=== PATIENT | female | born 1925 | race Caucasian/White ===

== ENCOUNTER 2016-10-25 12:33 | Inpatient (IN) | payer MEDICARE ==
[~2016-10-25] VITALS: Ht 167.6 cm; Wt 45.0 kg
[~2016-10-25 12:33] MED LIST: ALEN70 PO; ALLE24TA PO; CLIN1CAP6 PO; FLON0.053; IBUP800T23 PO; LEVO.075 PO; LEXA20TA PO; METHO500 PO; PRAV40TA PO; PRED20 PO; PROT40TA PO; STOO100C PO
[2016-10-25 12:58] VITALS: BP 120/58; PULSE 99; RESP 22; TEMP 97.5; O2SAT 96
--- NOTE | 2016-10-25 13:12 | PD ---
HPI Chief Complaint: Fall Time Seen by Provider: 13:08 Travel History International Travel<30 days: No Contact w/Intl Traveler<30days: No Traveled to known affect area: No History of Present Illness HPI 89 YO F with PMH of COPD, GERD presents to the ED from her RETIREMENT via EMS for evaluation of right arm and right hip pain following mechanical fall this morning. The patient states that she was attempting to transfer from her bed to ther wheelchair and "slipped." She endorses hitting her head but denies loss of consciousness. On presentation she denies headache, vision changes, nausea, vomiting, limitations to range of motion of the extremities. She endorses a history of chronic dizziness, no worse today. Her daughters are at bedside and state that the patient transfers like this every morning, sometimes uses a walker. They endorse a history of falls. They state that the patient is in her normal state of health and behaving normally. She has a history of right hip fracture with intertrochanteric nailing by Dr. Marie. [facility] Past Medical History Anemia: Yes Arthritis: Yes Blood Disorders: No Anxiety: Yes Depression: No Heart Rhythm Problems: No Cancer: No Cardiovascular Problems: Yes High Cholesterol: Yes Chest Pain: No Congestive Heart Failure: No COPD: Yes Cerebrovascular Accident: No Diabetes: No Diminished Hearing: No Endocrine: No Gastrointestinal Disorders: Yes GERD: Yes Genitourinary: Yes (HYPERACTIVE BLADDER) Headaches: No Hepatitis: No Hiatal Hernia: No Hypertension: No Immune Disorder: No Implanted Vascular Access Dvce: Yes (HX OF PICC LINE) Kidney Stones: No Medical other: Yes (pt has a fractured right foot which she is wearing a boot) Musculoskeletal: Yes (DJD; LUMBAR RADICULOPATHY; SPINAL STENOSIS) Neurologic: No Psychiatric: Yes Reproductive: No Respiratory: Yes (SINUS PROBLEMS) Migraines: No Myocardial Infarction: No Renal Failure: No Seizures: No Sleep Apnea: No Thyroid Disease: Yes Ulcer: No Menopausal: Yes : 3 Para: 2 Miscarriage: 1 Past Surgical History Abdominal Surgery: Yes (HYSTERECTOMY) Appendectomy: Yes Body Medical Devices: ORIF RIGHT RADIUS Section: Yes Cholecystectomy: No Ear Surgery: No Endocrine Surgery: No Eye Surgery: Yes (CATARACT REMOVED BOTH EYES) Genitourinary Surgery: No Hysterectomy: Yes Oral Surgery: No Pacemaker: No Tonsillectomy: Yes Other Surgery: Yes (NASAL FX/ORBITAL FX) Social History Alcohol Use: No Tobacco Use: No Substance Use: No Allergies-Medications (Allergen,Severity, Reaction): Coded Allergies: latex (Unverified Allergy, Severe, Rash, 09/24/16) phenazopyridine (Unverified Allergy, Severe, Nausea/Vomiting, 09/24/16) povidone-iodine (Unverified Allergy, Severe, 09/24/16) *MDRO Multi-Drug Resistant Organism (Unverified Adverse Reaction, Unknown , 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 Uncoded Allergies: VAGICIL (Allergy, Unknown, 12/13/02) Reported Meds & Prescriptions Reported Meds & Active Scripts Active Reported Claritin (Loratadine) 10 Mg Cap 10 Mg PO DAILY Levothyroxine (Levothyroxine Sodium) 75 Mcg Tab 75 Mcg PO DAILY Fluticasone Nasal [place] 50 Mcg/Act Naspr 50 Mcg EACH NARE DAILY 50 mcg/spray Atorvastatin (Atorvastatin Calcium) 20 Mg Tab 20 Mg PO HS Escitalopram (Escitalopram Oxalate) 20 Mg Tab 20 Mg PO DAILY Pantoprazole (Pantoprazole Sodium) 40 Mg Tab 40 Mg PO DAILY Meclizine (Meclizine HCl) 12.5 Mg Tab 12.5 Mg PO TID PRN Duoneb (Ipratropium-Albuterol Neb) 0.5-2.5 Mg/3 Ml Neb 1 Nebule INH Q6HR NEB Ibuprofen 800 Mg Tab 800 Mg PO Q8H PRN Review of Systems Except as stated in HPI: all other systems reviewed are Neg Physical Exam Narrative GENERAL: Frail, elderly white female in no acute distress. SKIN: Focused skin assessment warm/dry. Bruising along the base of the right thumb. HEAD: Normocephalic. Right periorbital contusion. No tenderness to palpation of the skull or facial bones. EYES: No scleral icterus. No injection or drainage. PERRLA. EOMI. NECK: Supple, trachea midline. No JVD or lymphadenopathy. No midline tenderness to palpation. No limitations to ROM of the neck. CARDIOVASCULAR: Regular rate and rhythm without murmurs, gallops, or rubs. 2+ DP and radial pulses bilaterally. RESPIRATORY: Breath sounds equal bilaterally. No accessory muscle use. GASTROINTESTINAL: Abdomen scaphoid, soft, non-tender, nondistended. Active bowel sounds. MUSCULOSKELETAL: No cyanosis, or edema. No internal rotation or foreshortening of the lower extremities. No TTP of the hip joints bilaterally. FOCUSED RIGHT UPPER EXTREMITY EXAM: TTP of the elbow joint. Pain elicited with attempted ROM. No TTP of the shoulder or wrist. No TTP of the joints of the wrist or hand. Neurovascularly intact. BACK: Nontender without obvious deformity. No CVA tenderness. Data Data Last Documented VS Vital Signs Date Time Temp Pulse Resp B/P (MAP) Pulse Ox O2 Delivery O2 Flow Rate FiO2 10/25/16 13:01 99 22 96 Nasal Cannula 6.00 10/25/16 12:58 97.5 120/58 (78) Orders Orders Hip, Uni(Ap&Lat) W Ap Pelvis (10/25/16 12:57) Humerus (Min 2vws) (10/25/16 12:57) Ct Brain W/O Iv Contrast(Rout) (10/25/16 12:57) Ct Cerv Spine W/O Contrast (10/25/16 12:57) Ct Facial Bones W/O Iv Cont (10/25/16 12:57) Acetaminophen (Tylenol) (10/25/16 13:15) Consult Orthopedic (10/25/16 ) Place In Observation (10/25/16 ) Code Status (10/25/16 15:12) Vital Signs (Adult) Q4H (10/25/16 15:12) Activity Oob With Assistance (10/25/16 15:12) Diet Heart Healthy (10/25/16 Dinner) Sodium Chloride 0.9% Flush (Ns Flush) (10/25/16 15:15) Sodium Chloride 0.9% Flush (Ns Flush) (10/25/16 21:00) Acetaminophen (Tylenol) (10/25/16 15:15) Ondansetron Inj (Zofran Inj) (10/25/16 15:15) Basic Metabolic Panel (Bmp) (10/26/16 06:00) Complete Blood Count With Diff (10/26/16 06:00) Chest, Single Ap (10/25/16 15:12) Electrocardiogram (10/25/16 15:12) Pt Request For Service (10/25/16 15:12) Enoxaparin Inj (Lovenox Inj) (10/25/16 15:15) Naloxone Inj (Narcan Inj) (10/25/16 15:15) Magnesium Hydroxide Liq (Milk Of Magnesi (10/25/16 15:15) Admit Order (Ed Use Only) (10/25/16 15:13) Splinting (10/25/16 ) Albuterol-Ipratropium Neb (Duoneb Neb) (10/25/16 15:15) Atorvastatin (Lipitor) (10/25/16 21:00) Escitalopram (Lexapro) (10/26/16 09:00) Levothyroxine (Synthroid) (10/26/16 09:00) Loratadine (Claritin) (10/26/16 09:00) Meclizine (Antivert) (10/25/16 15:15) Pantoprazole (Protonix) (10/26/16 09:00) [facility] Medical Decision Making Medical Screen Exam Complete: Yes Emergency Medical Condition: Yes Interpretation(s) EKG rate 102, sinus tachycardia. LAD. Nonspecific T wave abnormality. Reviewed by Dr. Bower Differential Diagnosis contusion versus facial fracture versus humeral fracture versus hip fracture versus pelvic fracture versus other Narrative Course 89 YO F with PMH of COPD, GERD presents to the ED from her RETIREMENT via EMS for evaluation of right arm and right hip pain following mechanical fall this morning. The patient states that she was attempting to transfer from her bed to ther wheelchair and "slipped." She denies loss of consciousness. On presentation she denies headache, vision changes, nausea, vomiting, limitations to range of motion of the extremities. She endorses a history of chronic dizziness, no worse today. Per daughters at bedside the patient is minimally ambulatory, behaving normally. She has a history of right hip fracture with intertrochanteric nailing by Dr. Marie. Vitals reviewed. Physical exam reveals a pleasant, frail white female in no acute distress. She has ecchymosis around the right eye, tenderness of the right elbow, exam otherwise unremarkable. X-ray hip and pelvis: fractures of the superior and inferior right pubic rami. X-ray right humerus: Nondisplaced supracondylar fracture. CTs of brain, cervical spine and facial bones all without acute findings. I spoke with Dr. Valadez who requests that the patient be admitted for observation. Dr. Marie will see the patient tomorrow. The family is agreeable to this plan. Dr. Jernigan agrees to accept the patient to the medical service. Please see medicine and ortho notes for disposition. Milena Chapa Oct 25, 2016 13:12
[2016-10-25] MEDS ORDERED: ACETAMINOPHEN 500 MG CPLT PO ONE (13:15)
[2016-10-25] MEDS ORDERED: IPRASOL INH (14:13)
[2016-10-25] MEDS ORDERED: PANT40TA3 PO (14:13)
[2016-10-25] MEDS ORDERED: MECL12.574 PO (14:13)
[2016-10-25] MEDS ORDERED: ESCI20TA PO (14:13)
[2016-10-25] MEDS ORDERED: LEVO75TA3 PO (14:13)
[2016-10-25] MEDS ORDERED: ATOR20TA15 PO (14:13)
[2016-10-25] MEDS ORDERED: CLAR10CA3 PO (14:13)
[2016-10-25] MEDS ORDERED: IBUP800T23 PO (14:13)
[2016-10-25] MEDS ORDERED: FLUT50SP EACH NARE (14:13)
--- NOTE | 2016-10-25 14:17 | RADRPT ---
EXAM DATE/TIME: 10/25/2016 13:25 [facility] COMPARISON: No previous studies available for comparison. INDICATIONS : Right hip pain post fall. MEDICAL HISTORY : None. SURGICAL HISTORY : None. ENCOUNTER: Initial ACUITY: 1 day PAIN SCORE: 10/10 LOCATION: Bilateral Pelvis FINDINGS: Previous Troch nail is evident. Urine does not appear solid. Acute Fracture of the superior and inferior pubic rami are present that appears acute. The left hemipelvis is intact. CONCLUSION: Acute fracture inferior and superior pubic ramus on the right Previous hip nailing. Arik Narayan MD FACR on October 25, 2016 at 14:14 Board Certified Radiologist. This report was verified electronically.
--- NOTE | 2016-10-25 14:25 | RADRPT ---
EXAM DATE/TIME: 10/25/2016 13:25 [facility] COMPARISON: No previous studies available for comparison. INDICATIONS : Right arm pain post fall. Patient has bruising near elbow. MEDICAL HISTORY : None. SURGICAL HISTORY : None. ENCOUNTER: Initial ACUITY: 1 day PAIN SCORE: 10/10 LOCATION: Right Humerus FINDINGS: Supracondylar fracture of the humerus in anatomic alignment with moderate joint effusion. Olecranon and radial head are intact. CONCLUSION: Supracondylar humeral fracture in reasonable alignment. Arik Narayan MD FACR on October 25, 2016 at 14:22 Board Certified Radiologist. This report was verified electronically.
--- NOTE | 2016-10-25 14:28 | RADRPT ---
EXAM DATE/TIME: 10/25/2016 14:08 [facility] COMPARISON: CT BRAIN W/O CONTRAST, May 10, 2013, 19:48. INDICATIONS : Head pain due to fall. RADIATION DOSE: 31.84 CTDIvol (mGy) MEDICAL HISTORY : Cardiovascular disease. Spinal stenosis. SURGICAL HISTORY : Appendectomy. Hysterectomy. ENCOUNTER: Initial ACUITY: 1 day PAIN SCALE: 8/10 LOCATION: Right cranial frontal region. TECHNIQUE: Multiple contiguous axial images were obtained of the head. Using automated exposure control and adj ustment of the mA and/or kV according to patient size, radiation dose was kept as low as reasonably a chievable to obtain optimal diagnostic quality images. DICOM format image data is available [facility] for review and comparison. FINDINGS: CEREBRUM: Mild cerebral atrophy. Moderate periventricular white matter small vessel ischemic changes are noted bilaterally. No evidence of midline shift, mass lesion, hemorrhage or acute infarction. No extra-axi al fluid collections are seen. POSTERIOR FOSSA: The cerebellum and brainstem are intact. The 4th ventricle is midline. The cerebellopontine angle i s unremarkable. EXTRACRANIAL: The visualized portion of the orbits is intact. Mucosal thickening is noted involving the bilateral m axillary and sphenoid sinuses as well as the left ethmoid air cells. SKULL: The calvaria is intact. No evidence of skull fracture. CONCLUSION: 1. Mild cerebral atrophy and moderate periventricular white matter small vessel ischemic changes bila terally. 2. No acute infarct, acute hemorrhage, mass effect or extra-axial fluid collections. 3. Mucosal thickening involving the bilateral maxillary and sphenoid sinuses and left ethmoid air ajit ls. Ed Maria MD on October 25, 2016 at 14:23 Board Certified Radiologist. This report was verified electronically.
--- NOTE | 2016-10-25 14:45 | RADRPT ---
EXAM DATE/TIME: 10/25/2016 14:08 [facility] COMPARISON: CT CERVICAL SPINE W/O CONTRAST, May 10, 2013, 19:48. INDICATIONS : Neck pain due to fall. RADIATION DOSE: 7.24 CTDIvol (mGy) MEDICAL HISTORY : Cardiovascular disease. Spinal stenosis. SURGICAL HISTORY : Appendectomy. Hysterectomy. ENCOUNTER: Initial ACUITY: 1 day PAIN SCALE: 7/10 LOCATION: Right side of neck. TECHNIQUE: Volumetric scanning of the cervical spine was performed. Multiplanar reconstructions in the sagittal, coronal and oblique axial planes were performed. Using automated exposure control and adjustment o f the mA and/or kV according to patient size, radiation dose was kept as low as reasonably achievable to obtain optimal diagnostic quality images. DICOM format image data is available electronically f or review and comparison. FINDINGS: There is no acute fracture or prevertebral soft tissue swelling. Severe disc space narrowing and sub chondral sclerosis is noted at C5-6 and C6-7 and is stable compared to the previous examination in [facility] of 2013. There is severe disc space narrowing at C4-5 and moderate disc space narrowing at C3-4 and C7-T1 also. Moderate bilateral foraminal narrowing is noted at C5-6 and C6-7 and moderate left n eural foraminal narrowing is noted at C3-4 and C4-5. Scoliosis of the cervical spine is noted. Biap ical scarring and pleural thickening is again noted. Spinal stenosis is again noted at C5-6 and C6-7 . CONCLUSION: 1. No acute fracture or prevertebral soft tissue swelling. 2. Stable chronic spinal stenosis at C5-6 and C6-7 with moderate bilateral foraminal narrowing at the se levels. 3. Moderate left neural foraminal narrowing at C3-4 and C4-5. 4. Diffuse cervical spondylosis which is most severe at C5-6 and C6-7. 5. Straightening of the normal cervical lordosis. 6. Biapical scarring and pleural thickening which is unchanged compared to the previous examination. Ed Maria MD on October 25, 2016 at 14:27 Board Certified Radiologist. This report was verified electronically.
--- NOTE | 2016-10-25 14:47 | RADRPT ---
EXAM DATE/TIME: 10/25/2016 14:08 [facility] COMPARISON: No previous studies available for comparison. INDICATIONS : Right side orbit pain due to fall. RADIATION DOSE: 46.29 CTDIvol (mGy) MEDICAL HISTORY : Cardiovascular disease. Spinal stenosis. SURGICAL HISTORY : Appendectomy. Hysterectomy. ENCOUNTER: Initial ACUITY: 1 day PAIN SCORE: 6/10 LOCATION: facial TECHNIQUE: Volumetric scanning of the facial bones was performed. Using automated exposure control and adjustme nt of the mA and/or kV according to patient size, radiation dose was kept as low as reasonably achiev able to obtain optimal diagnostic quality images. DICOM format image data is available electronicall y for review and comparison. FINDINGS: There is soft tissue swelling about the right orbit without fracture. The superior and inferior nasa l spines are intact. The orbit is intact. There is low sinus disease mostly mucoperiosteal thickening including the sphenoid and left scrotal a nd ethmoids.. There are extensive degenerative changes both the right and left TMJ. CONCLUSION: Negative for fracture. Low chronic sinus disease. Arik Narayan MD FACR on October 25, 2016 at 14:43 Board Certified Radiologist. This report was verified electronically.
[2016-10-25] MEDS ORDERED: NALOXONE HCL 0.4 MG/ML AMP IV PUSH PRN (15:15)
[2016-10-25] MEDS ORDERED: SODIUM CHLORIDE 0.9% FLUSH 10 ML FLUSH IV FLUSH PRN (15:15)
[2016-10-25] MEDS ORDERED: MAGNESIUM HYDROXIDE SUSP 30 ML CUP PO PRN (15:15)
[2016-10-25] MEDS ORDERED: MECLIZINE HCL 25 MG TAB PO PRN (15:15)
[2016-10-25] MEDS ORDERED: ONDANSETRON HCL 4 MG/2 ML VIAL IVP PRN (15:15)
[2016-10-25] MEDS ORDERED: HYDROmorphone HCL PF 1 MG/ML VIAL IV PUSH PRN (15:15)
[2016-10-25 15:59] VITALS: O2SAT 94
[2016-10-25] MEDS: RESP: ALBUTEROL 2.5 MG/IPRATROPIUM 0.5 MG NEB (PRN) NEB (16:02)
--- NOTE | 2016-10-25 16:15 | RADRPT ---
EXAM DATE/TIME: 10/25/2016 15:48 [facility] COMPARISON: HIP RIGHT (AP&LAT 2/3VWS) W AP PELVIS, October 25, 2016, 13:25. INDICATIONS : Shortness of breath, chest pain. MEDICAL HISTORY : Chronic obstructive pulmonary disease. SURGICAL HISTORY : Hysterectomy. ENCOUNTER: Initial ACUITY: 1 day PAIN SCORE: 5/10 LOCATION: Bilateral chest FINDINGS: The examination demonstrates moderate COPD changes. The heart is normal in size. The visualized bony structures are grossly intact. CONCLUSION: 1. COPD changes. Negative for acute abnormality. Lucien Narayan MD on October 25, 2016 at 16:12 Board Certified Radiologist. This report was verified electronically.
[2016-10-25 17:00] VITALS: BP 76/40; PULSE 108; RESP 18; TEMP 96.3; O2SAT 95
[2016-10-25] MEDS ORDERED: SODIUM CHLOR 0.9% 1000 ML INJ 1,000 ML IV SCH (17:00)
[2016-10-25] MEDS ORDERED: SODIUM CHLORID 0.9% 500 ML INJ 500 ML IV ONE (17:00)
--- NOTE | 2016-10-25 17:13 | HHI.HP ---
HPI Service [facility] Hospitalists Primary Care Physician Carl Cota M.D. Admission Diagnosis right inf and sup pubic rami fx. Right supraconylar humeral fx. 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 Patient currently living in an [facility] and has been independent with ADLs. Patient was transferring from her bed to her wheelchair reports that she slipped and fell. Patient endorses that she hit her head but denies loss of consciousness. Patient endorses a history of chronic dizziness, no worse today. Her daughters are at bedside and state that the patient transfers like this every morning, sometimes uses a walker. They endorse a history of falls. They state that the patient is in her normal state of health and behaving normally. Patient denies headache, vision changes, nausea, vomiting, limitations to range of motion of the extremities. She has a history of right hip fracture with intertrochanteric nailing by Dr. Marie. Patient sustained a fracture of the inferior and superior pubic ramus on right and a supra condylar humeral fracture in reasonable alignment Review of Systems Constitutional: DENIES: Fatigue, Fever, Chills Eyes: DENIES: Blurred vision, Eye pain, Double Vision Respiratory: DENIES: Cough, Sputum production, Shortness of breath Cardiovascular: DENIES: Chest pain, Palpitations, Dyspnea on Exertion Musculoskeletal: COMPLAINS OF: Joint pain Neurologic: DENIES: Localized weakness, Paresthesias, Speech Problems Psychiatric: DENIES: Anxiety, Confusion, Depression Past Family Social History Past Medical History 1. Spinal stenosis involving her lumbar spine. 2. Degenerative joint disease. 3. Over active bladder. 4. History of recurrent urinary tract infection. 5. Hyperlipidemia. 6. Anxiety. 7. Osteoporosis. 8. Chronic anemia. 9. Gastroesophageal reflux disease. 10. Allergic rhinitis. 11. Hypothyroidism. 12. Depression. Past Surgical History 1. Total hysterectomy. 2. Tonsillectomy. 3. Right hip fracture requiring surgery. 4. Fracture of the right radius and open reduction, internal fixation. 5. Lumbar surgery by Dr. Damian, details are not known to the patient. Reported Medications Claritin (Loratadine) 10 Mg Cap 10 Mg PO DAILY Levothyroxine (Levothyroxine Sodium) 75 Mcg Tab 75 Mcg PO DAILY Fluticasone Nasal [place] 50 Mcg/Act Naspr 50 Mcg EACH NARE DAILY 50 mcg/spray Atorvastatin (Atorvastatin Calcium) 20 Mg Tab 20 Mg PO HS Escitalopram (Escitalopram Oxalate) 20 Mg Tab 20 Mg PO DAILY Pantoprazole (Pantoprazole Sodium) 40 Mg Tab 40 Mg PO DAILY Meclizine (Meclizine HCl) 12.5 Mg Tab 12.5 Mg PO TID PRN Duoneb (Ipratropium-Albuterol Neb) 0.5-2.5 Mg/3 Ml Neb 1 Nebule INH Q6HR NEB Ibuprofen 800 Mg Tab 800 Mg PO Q8H PRN Allergies: Coded Allergies: latex (Unverified Allergy, Severe, Rash, 09/24/16) phenazopyridine (Unverified Allergy, Severe, Nausea/Vomiting, 09/24/16) povidone-iodine (Unverified Allergy, Severe, 09/24/16) *MDRO Multi-Drug Resistant Organism (Unverified Adverse Reaction, Unknown , 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 Uncoded Allergies: VAGICIL (Allergy, Unknown, 12/13/02) Active Ordered Medications Current Medications Medications (Trade) Dose Ordered Sig/Evelia Route Start Time Stop Time Status Last Admin (NS Flush) 2 ml UNSCH PRN IV FLUSH 10/25/16 15:15 (NS Flush) 2 ml BID IV FLUSH 10/25/16 21:00 (Tylenol) 650 mg Q4H PRN PO 10/25/16 15:15 (Zofran Inj) 4 mg Q6H PRN IVP 10/25/16 15:15 (Lovenox Inj) 30 mg Q24H SQ 10/25/16 16:00 (Narcan Inj) 0.4 mg UNSCH PRN IV PUSH 10/25/16 15:15 (Milk Of Magnesia Liq) 30 ml Q12H PRN PO 10/25/16 15:15 (Duoneb Neb) 1 ampule Q6HR NEB PRN NEB 10/25/16 15:15 10/25/16 16:02 (Lipitor) 20 mg HS PO 10/25/16 21:00 (Lexapro) 20 mg DAILY PO 10/26/16 09:00 (Synthroid) 75 mcg DAILY PO 10/26/16 09:00 (Claritin) 10 mg DAILY PO 10/26/16 09:00 (Antivert) 12.5 mg TID PRN PO 10/25/16 15:15 (Protonix) 40 mg DAILY PO 10/26/16 09:00 ([place] 5-325 Mg) 1 tab Q6H PRN PO 10/25/16 15:15 (Dilaudid Pf Inj) 0.5 mg Q6H PRN IV PUSH 10/25/16 15:15 Sodium Chloride 500 ml @ 250 mls/hr BOLUS ONCE IV 10/25/16 17:00 10/25/16 18:59 UNV Sodium Chloride 1,000 ml @ 75 mls/hr [id number] IV 10/25/16 17:00 10/26/16 06:19 UNV Family History noncontributory Social History The patient has a history of smoking probably 14 years less than a pack a day. The patient quit when she was 37. Drinks alcohol socially. Physical Exam Vital Signs Vital Signs Date Time Temp Pulse Resp B/P (MAP) Pulse Ox O2 Delivery O2 Flow Rate FiO2 10/25/16 16:30 10/25/16 15:59 94 Nasal Cannula 2.00 10/25/16 13:01 99 22 96 Nasal Cannula 6.00 10/25/16 12:58 97.5 99 22 120/58 (78) 96 Nasal Cannula 6.00 Physical Exam GENERAL: This is a frail cachetic 89 year old elderly female SKIN:ecchymoses left side of face HEAD: ecchymosis left side of face NECK: Trachea midline. No JVD or lymphadenopathy. Supple, nontender, no meningeal signs. CARDIOVASCULAR: Regular rate and rhythm RESPIRATORY: Clear to auscultation. Breath sounds equal bilaterally. No wheezes , rales, or rhonchi. GASTROINTESTINAL: Abdomen soft, non-tender, nondistended. No guarding. MUSCULOSKELETAL: generalized muscular atrophy NEUROLOGICAL: Awake and alert. Motor and sensory grossly within normal limits. 3-4 out of 5 muscle strength in all muscle groups. Imaging Last Impressions Maxillofacial CT 10/25/16 1257 Signed Impressions: Service Date/Time: Tuesday, October 25, 2016 14:08 - CONCLUSION: Negative for fracture. Tubbs chronic sinus disease. Arik Narayan MD FACR Humerus X-Ray 10/25/16 1257 Signed Impressions: Service Date/Time: Tuesday, October 25, 2016 13:25 - CONCLUSION: Supracondylar humeral fracture in reasonable alignment. Arik Narayan MD FACR Hip and Pelvis X-Ray 10/25/16 1257 Signed Impressions: Service Date/Time: Tuesday, October 25, 2016 13:25 - CONCLUSION: Acute fracture inferior and superior pubic ramus on the right Previous hip nailing. Arik Narayan MD FACR Head CT 10/25/16 1257 Signed Impressions: Service Date/Time: Tuesday, October 25, 2016 14:08 - CONCLUSION: 1. Mild cerebral atrophy and moderate periventricular white matter small vessel ischemic changes bilaterally. 2. No acute infarct, acute hemorrhage, mass effect or extra-axial fluid collections. 3. Mucosal thickening involving the bilateral maxillary and sphenoid sinuses and left ethmoid air cells. Ed Maria MD Caprini VTE Risk Assessment Caprini VTE Risk Assessment: Mod/High Risk (score >= 2) Caprini Risk Assessment Model Point Value = 1 Point Value = 2 Point Value = 3 Point Value = 5 Age 41-60 Minor surgery BMI > 25 kg/m2 Swollen legs Varicose veins or History of unexplained or recurrent spontaneous Oral contraceptives or hormone replacement Sepsis (< 1 month) Serious lung disease, including pneumonia (< 1 month) Abnormal pulmonary function Acute myocardial infarction Congestive heart failure (< 1 month) History of inflammatory bowel disease Medical patient at bed rest Age 61-74 Arthroscopic surgery Major open surgery (> 45 min) Laparoscopic surgery (> 45 min) Malignancy Confined to bed (> 72 hours) Immobilizing plaster cast Central venous access Age >= 75 History of VTE Family history of VTE Factor V Leiden Prothrombin [id number] Lupus anticoagulant Anticardiolipin antibodies Elevated serum homocysteine Heparin-induced thrombocytopenia Other congenital or acquired thrombophilia Stroke (< 1 month) Elective arthroplasty Hip, pelvis, or leg fracture Acute spinal cord injury (< 1 month) Prophylaxis Regimen Total Risk Factor Score Risk Level Prophylaxis Regimen 0-1 Low Early ambulation 2 Moderate Order ONE of the following: *Sequential Compression Device (SCD) *Heparin 5000 units SQ BID 3-4 Higher Order ONE of the following medications: *Heparin 5000 units SQ TID *Enoxaparin/Lovenox 40 mg SQ daily (WT < 150 kg, CrCl > 30 mL/min) *Enoxaparin/Lovenox 30 mg SQ daily (WT < 150 kg, CrCl > 10-29 mL/min) *Enoxaparin/Lovenox 30 mg SQ BID (WT < 150 kg, CrCl > 30 mL/min) AND/OR *Sequential Compression Device (SCD) 5 or more Highest Order ONE of the following medications: *Heparin 5000 units SQ TID (Preferred with Epidurals) *Enoxaparin/Lovenox 40 mg SQ daily (WT < 150 kg, CrCl > 30 mL/min) *Enoxaparin/Lovenox 30 mg SQ daily (WT < 150 kg, CrCl > 10-29 mL/min) *Enoxaparin/Lovenox 30 mg SQ BID (WT < 150 kg, CrCl > 30 mL/min) AND *Sequential Compression Device (SCD) Assessment and Plan Problem List: (1) Fall ICD Codes: W19.XXXA - Unspecified fall, initial encounter Plan: mechanical fall imaging reviewed Hip/Pelvis X-ray revealed fracture of the inferior and superior pubic ramus on right Humerus X ray right supra condylar humeral fracture in reasonable alignment Head CT reviewed and revealed no acute infarct, acute hemorrhage, mass effect or extra-axial fluid collection Consult to Orthopedic surgery Patient also reports back pain- Lumbar spine x ray pending PT eval and treat DVT prophylaxis Lovenox (2) Hypotension ICD Codes: I95.9 - Hypotension, unspecified Plan: upon arrival to her room patient BP 66/41 start fluid challenge 500 ml bolus followed by NS at 75 ml/hour discussed with daughters at bedside they agree with vasopressor if needed (3) Hypothyroid ICD Codes: E03.9 - Hypothyroid Status: Acute Plan: continue home levothyroxine (4) Hyperlipemia ICD Codes: E78.5 - Hyperlipemia Status: Acute Plan: continue Atorvastatin (5) GERD (gastroesophageal reflux disease) ICD Codes: K21.9 - GERD (gastroesophageal reflux disease) Status: Acute Plan: continue pantoprazole Assessment and Plan Patient examined. Assessment and plan formulated with Becky MACK I agree with the above. Code Status DNR Becky Serrano Oct 25, 2016 17:13 Segun Jernigan DO Oct 28, 2016 15:32
[2016-10-25] MEDS ORDERED: TERBUTALINE INJ 1 MG/ML AMP SQ PRN (17:45)
[2016-10-25] MEDS ORDERED: DOPamine INJ PREMIX 500 ML IV PRN (17:45)
[2016-10-25] MEDS: ENOXAPARIN SODIUM 30 MG/0.3 ML SYRINGE SQ SCH (17:58)
--- NOTE | 2016-10-25 18:46 | MH ---
cc: ZEE MAIN EDWARD B. DO DATE OF ADMISSION: 10/25/2016 REASON FOR CONSULTATION: 1. Fracture, right superior and inferior pubic rami. 2. Nondisplaced supracondylar fracture right humerus. HISTORY OF PRESENT ILLNESS: History consists of a fall in the assisted living facility this morning at 10:30 when the patient was trying to transfer from bed to a wheelchair to go to the bathroom. She states she does not know what happened but she lost her balance and fell resulting in this injury for which was brought to the [facility] Emergency Room where she was evaluated, x-rayed and now admitted to the hospital for definitive care. PAST MEDICAL HISTORY: 1. She suffers from chronic pain because of back problems in spite of spinal fusion done several years ago. She is limited in her activities, especially ambulation because of that. 2. Fracture of the intertrochanteric region of the right femur sustained several years ago and treated by Dr. Marie. 3. Fracture of the right wrist. 4. Fracture of the right foot. 5. Recurrent urinary tract infection. 6. Hyperlipidemia. 7. Anxiety. 8. Chronic anemia. 9. Gastroesophageal reflux disease (GERD). 10. Hypothyroidism. 11. Depression. PAST SURGICAL HISTORY: 1. Total hysterectomy. 2. Tonsillectomy. 3. Open reduction internal fixation right hip. 4. Internal fixation of fracture of right distal radius. 5. Spine fusion. MEDICATIONS: She is on multiple medications: 1. Claritin. 2. Levothyroxine. 3. Fluticasone. 4. Atorvastatin. 5. Escitalopram. 6. Pantoprazole. 7. Meclizine. 8. Ibuprofen. ALLERGIES: 1. LATEX. PHYSICAL EXAMINATION: GENERAL: The physical examination reveals an elderly white female who has oxygen cannula for nasal oxygen. She wakes up very easily and she answers questions very well. She seems to be very well oriented. Her daughters are present. RIGHT LOWER EXTREMITY: The right lower extremity has satisfactory orientation with no shortening or external rotation deformity. Gentle range of motion does not produce pain but she has quite a lot of discomfort complained of in the right groin. She has chronic problems and even now quite a lot of discomfort in her lower back (there are no x-rays of the lumbar spine done today). RIGHT UPPER EXTREMITY: Her right upper extremity is in a long-arm posterior splint. Fingertips and thumb are warm and pink with good capillary filling and she moves them quite well. IMAGING STUDIES: X-rays of the pelvis and right hip reveal a healed intertrochanteric fracture with a cephalomedullary device. There are displaced fractures of the right superior and inferior pubic rami but no corresponding fracture in the sacroiliac region. The little bit of the lumbar spine we see shows extensive spondylosis with internal fixation with pedicle screws and rods. X-rays of the right elbow reveal a nondisplaced fracture of the supracondylar region with minimal impaction but no angulation or displacement. IMPRESSION: 1. Displaced fractures, right superior and inferior pubic rami, acute. 2. Acute fracture supracondylar region right humerus impacted nondisplaced. TREATMENT: 1. I will apply a long-arm cast tomorrow for better support especially being that is the dominant arm and she is probably going to weight-bear even you tell her not to. 2. As far as the pubic rami fractures are concerned, no intervention is needed other than pain management and activity modification. 3. Will get X-rays of the lumbar spine to make sure there are no compression fractures of recent origin. Her situation and discharge disposition was discussed with her admitting physician, Dr. Jernigan. MD EARLINE Lama/GLORIA /5:31 PM /6:30 PM
--- NOTE | 2016-10-25 20:59 | EKG ---
Date Performed: 10/25/2016 Time Performed: 12:55:06 PTAGE: 89 years EKG: SINUS TACHYCARDIA MARKED LEFT AXIS DEVIATION Nonspecific ST and T wave abnormalities ABNORM AL ECG Compared to prior electrocardiogram, PA interval has shortened and STT wave changes are presen t. PREVIOUS TRACING : 07/26/2014 12.33 DOCTOR: Pavan Fonseca Interpretating Date/Time 10/25/2016 20:58:12
--- NOTE | 2016-10-25 21:20 | RADRPT ---
EXAM DATE/TIME: 10/25/2016 20:53 [facility] COMPARISON: No previous studies available for comparison. INDICATIONS : Back pain with fall. MEDICAL HISTORY : Chronic obstructive pulmonary disease. SURGICAL HISTORY : Hysterectomy. ENCOUNTER: Initial ACUITY: 1 week PAIN SCORE: 10/10 LOCATION: Lower back. FINDINGS: Patient has had previous laminectomy and fusion procedure with posterior instrumentation at L3/L4 and L4/L5. There is loss of height of the L3 vertebral body noted that primarily appears chronic; there is some hypertrophic bone mostly along its anterior margin. The L3 pedicle screws project over the L2 /L3 disc space.. Severe loss of height of the L2/L3 disc and there is mild levoconvex curvature cente red around this level. No subluxations. CONCLUSION: 1. No subluxation or definite acute fracture. 2. Chronic appearing loss of height towards the left of the L3 vertebral body and the pedicle screws appear to extend into the L2/L3 disc space. 3. Mild levoconvex curvature centered around L2/L3. Juarez Caro MD on October 25, 2016 at 21:14 Board Certified Radiologist. This report was verified electronically.
[2016-10-25] MEDS: SODIUM CHLORIDE 0.9% FLUSH 10 ML FLUSH IV FLUSH SCH (21:41)
[2016-10-25] MEDS: ATORVASTATIN 20 MG TAB PO SCH (21:42)
[2016-10-25 22:15] VITALS: BP 80/42
[2016-10-25] MEDS ORDERED: ALBUMIN HUMAN 25% 25 GM/100 ML BAGP IV ONE (22:15)
[2016-10-25] MEDS ORDERED: SODIUM CHLOR 0.9% 1000 ML INJ 1,000 ML IV ONE (22:15)
[2016-10-25 23:15] VITALS: BP 87/55; PULSE 115; RESP 18; TEMP 96; O2SAT 95
[2016-10-26] VITALS (16 sets, daily range): BP systolic 95–119; BP diastolic 47–59; PULSE 85–102; RESP 16–24; TEMP 96.3–98.9; O2SAT 94–100
--- NOTE | 2016-10-26 00:10 | PD.CONS ---
[facility] Service Critical Care Medicine Consult Requested By Dr. Jernigan Reason for Consult Hypotension Primary Care Physician Carl Cota M.D. History of Present Illness 89-year-old female. DNR status. Date of admission 10/25/2016. Past medical history includes depression/anxiety, hypothyroid, spinal stenosis/DJD, dyslipidemia, gastroesophageal reflux disease, COPD, peripheral neuropathy and chronic anemia. Patient presents to [facility] post fall after she was trying to transfer from bed to a wheelchair to go to the bathroom. X-rays reveal acute fracture to the right inferior and superior pubic ramus. Also had a supracondylar humerus fracture right side.. These are both been immobilized and wrapped in Filiberto bandage. Patient received a 500 cc bolus however was hypotensive. She is complaining of the very poor for the past several days. She received 50 g of albumin in 2 L normal saline she is currently normotensive.. Review of Systems Constitutional: DENIES: Fatigue, Fever Eyes: DENIES: Blurred vision, Eye inflammation Ears, nose, mouth, throat: DENIES: Tinnitus Respiratory: DENIES: Apneas Cardiovascular: DENIES: Chest pain Gastrointestinal: DENIES: Abdominal pain, Diarrhea, Nausea Genitourinary: COMPLAINS OF: Urgency Musculoskeletal: COMPLAINS OF: Joint pain, Joint Swelling, DENIES: Back pain, Neck pain Integumentary: COMPLAINS OF: Abnormal pigmentation, DENIES: Rash Hematologic/lymphatic: COMPLAINS OF: Bruising Immunologic/allergic: DENIES: Eczema Neurologic: COMPLAINS OF: Headache, DENIES: Abnormal gait Psychiatric: DENIES: Anxiety, Confusion Past Family Social History Allergies: Coded Allergies: latex (Unverified Allergy, Severe, Rash, 09/24/16) phenazopyridine (Unverified Allergy, Severe, Nausea/Vomiting, 09/24/16) povidone-iodine (Unverified Allergy, Severe, 09/24/16) *MDRO Multi-Drug Resistant Organism (Unverified Adverse Reaction, Unknown , 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 Uncoded Allergies: VAGICIL (Allergy, Unknown, 12/13/02) Past Medical History Depression/anxiety Hypothyroidism COPD osteoporosis/osteoarthritis DJD Spinal stenosis Chronic low back pain Chronic anemia History of MRSA Dyslipidemia Gastroesophageal reflux disease Allergic rhinitis Past Surgical History T&A Hysterectomy Appendectomy Open reduction internal fixation right hip. Internal fixation of fracture of right distal radius. Lumbar spinal screw placement Cataract Reported Medications Claritin (Loratadine) 10 Mg Cap 10 Mg PO DAILY Levothyroxine (Levothyroxine Sodium) 75 Mcg Tab 75 Mcg PO DAILY Fluticasone Nasal [place] 50 Mcg/Act Naspr 50 Mcg EACH NARE DAILY 50 mcg/spray Atorvastatin (Atorvastatin Calcium) 20 Mg Tab 20 Mg PO HS Escitalopram (Escitalopram Oxalate) 20 Mg Tab 20 Mg PO DAILY Pantoprazole (Pantoprazole Sodium) 40 Mg Tab 40 Mg PO DAILY Meclizine (Meclizine HCl) 12.5 Mg Tab 12.5 Mg PO TID PRN Duoneb (Ipratropium-Albuterol Neb) 0.5-2.5 Mg/3 Ml Neb 1 Nebule INH Q6HR NEB Ibuprofen 800 Mg Tab 800 Mg PO Q8H PRN Active Ordered Medications Reviewed in EMR Family History Mother and father of old age. Social History Occasional EtOH. No tobacco 15 years. No IV drug use Physical Exam Vital Signs Vital Signs Date Time Temp Pulse Resp B/P (MAP) Pulse Ox O2 Delivery O2 Flow Rate FiO2 10/25/16 23:15 96.0 115 18 87/55 (66) 95 10/25/16 22:15 80/42 (55) 10/25/16 17:00 96.3 108 18 76/40 (52) 95 10/25/16 16:30 10/25/16 15:59 94 Nasal Cannula 2.00 10/25/16 13:01 99 22 96 Nasal Cannula 6.00 10/25/16 12:58 97.5 99 22 120/58 (78) 96 Nasal Cannula 6.00 Physical Exam GENERAL: 89-year-old female, resting in bed in no acute distress SKIN: Warm and dry. Ecchymoses right periorbital HEAD: Atraumatic. Normocephalic. EYES: Pupils equal and round about 3 mm bilaterally and reactive. No scleral icterus. No injection or drainage. ENT: No nasal bleeding or discharge. Mucous membranes pink and moist. NECK: Trachea midline. No JVD. CARDIOVASCULAR: Regular rate and rhythm. S1, S2. No S4. RESPIRATORY: No accessory muscle use. Clear to auscultation. Breath sounds equal bilaterally. GASTROINTESTINAL: Abdomen soft, non-tender, nondistended. Hepatic and splenic margins not palpable. MUSCULOSKELETAL: Right upper extremity currently in soft cast. NEUROLOGICAL: Awake and alert. Pleasantly confused. No obvious cranial nerve deficits. Motor grossly within normal limits. Five out of 5 muscle strength in the arms and legs. Normal speech. Imaging Last Impressions Chest X-Ray 10/25/16 1512 Signed Impressions: Service Date/Time: Tuesday, October 25, 2016 15:48 - CONCLUSION: 1. COPD changes. Negative for acute abnormality. Lucien Narayan MD Maxillofacial CT 10/25/16 1257 Signed Impressions: Service Date/Time: Tuesday, October 25, 2016 14:08 - CONCLUSION: Negative for fracture. Tubbs chronic sinus disease. Arik Narayan MD FACR Humerus X-Ray 10/25/16 1257 Signed Impressions: Service Date/Time: Tuesday, October 25, 2016 13:25 - CONCLUSION: Supracondylar humeral fracture in reasonable alignment. Arik Narayan MD FACR Hip and Pelvis X-Ray 10/25/16 1257 Signed Impressions: Service Date/Time: Tuesday, October 25, 2016 13:25 - CONCLUSION: Acute fracture inferior and superior pubic ramus on the right Previous hip nailing. Arik Narayan MD FACR Head CT 10/25/16 1257 Signed Impressions: Service Date/Time: Tuesday, October 25, 2016 14:08 - CONCLUSION: 1. Mild cerebral atrophy and moderate periventricular white matter small vessel ischemic changes bilaterally. 2. No acute infarct, acute hemorrhage, mass effect or extra-axial fluid collections. 3. Mucosal thickening involving the bilateral maxillary and sphenoid sinuses and left ethmoid air cells. Ed Maria MD Cervical Spine CT 10/25/16 1257 Signed Impressions: Service Date/Time: Tuesday, October 25, 2016 14:08 - CONCLUSION: 1. No acute fracture or prevertebral soft tissue swelling. 2. Stable chronic spinal stenosis at C5-6 and C6-7 with moderate bilateral foraminal narrowing at these levels. 3. Moderate left neural foraminal narrowing at C3-4 and C4-5. 4. Diffuse cervical spondylosis which is most severe at C5-6 and C6-7. 5. Straightening of the normal cervical lordosis. 6. Biapical scarring and pleural thickening which is unchanged compared to the previous examination. Ed Maria MD Lumbar Spine X-Ray 10/25/16 0000 Signed Impressions: Service Date/Time: Tuesday, October 25, 2016 20:53 - CONCLUSION: 1. No subluxation or definite acute fracture. 2. Chronic appearing loss of height towards the left of the L3 vertebral body and the pedicle screws appear to extend into the L2/L3 disc space. 3. Mild levoconvex curvature centered around L2/L3. Juarez Caro MD Assessment and Plan Assessment and Plan Neuro/Psych: History of vertigo Allergic rhinitis Acetaminophen for fever Hydrocodone/acetaminophen for pain Continue escitalopram 20 mg by mouth daily for depression Continue meclizine 12.5 mg by mouth 3 times a day for vertigo On loratadine 10 mg by mouth daily and Flonase for allergies CV: Hypotension likely hypovolemic History dyslipidemia Patient received 2 L normal saline and 50 g albumin. Currently normotensive Laboratories pending including lactate and troponin Follow-up on EKG Continue atorvastatin 20 mg by mouth daily for dyslipidemia Resp: History COPD As needed albuterol nebulizers every 2 hours when necessary Nasal cannula to maintain saturations greater than equal to 92% GI: Gastroesophageal reflux disease Continue Protonix 40 mg by mouth daily/home medication Currently on heart healthy diet : Foster catheter if indicated for accurate I's nose Endo: Hypothyroidism Continue levothyroxine at 75 mg by mouth daily Renal: Follow-up on BMP. Currently pending Monitor urine output Accurate I's and O's Heme: Follow-up CBC ID: Monitor for infection Follow-up UA history of recurrent UTIs MSK: Right supracondylar humerus fracture Right acute fracture inferior and superior pubic rami Management per orthopedics. Currently immobilized. FEN: Replace electrolytes as clinically indicated Access - Utilize peripheral IV. Central line if indicated Prophylaxis - GI - pantoprazole - DVT - SCD/holding pharmacological prophylaxis Level II consult Code Status Full code Discussed Condition With Daughter. Care plan discussed and all questions answered. Chuy Ghosh MD Oct 26, 2016 00:10
[2016-10-26 07:31] LABS: AUTOMATED NEUTROPHIL # 10.3 TH/MM3 (1.8-7.7); LYMPH % 12.1 % (9.0-44.0); LYMPHOCYTE # 1.6 TH/MM3 (1.0-4.8); MEAN CELL VOLUME 99.9 FL (80.0-100.0); MEAN CORPUSCULAR HEMOGLOBIN 33.2 PG (27.0-34.0); MEAN CORPUSCULAR HGB CONC 33.2 % (32.0-36.0); MONO % 10.3 % (0.0-8.0); NEUT % 77.6 % (16.0-70.0); PLATELET COUNT 111 TH/MM3 (150-450); RED BLOOD COUNT 1.73 MIL/MM3 (4.00-5.30); RED CELL DISTRIBUTION WIDTH 13.1 % (11.6-17.2); WHITE BLOOD COUNT 13.3 TH/MM3 (4.0-11.0)
[2016-10-26 07:33] LABS: HEMO FLAGS DIFF FINAL
[2016-10-26 07:37] LABS: APTT (PATIENT) 37.8 SEC (24.3-30.1); HEMATOCRIT 17.2 % (35.0-46.0); INTERNATIONAL NORMALIZED RATIO 1.2 RATIO; PROTHROMBIN TIME - PATIENT 13.9 SEC (9.8-11.6)
[2016-10-26 07:57] LABS: ANION GAP 8 MEQ/L (5-15); AST (GOT) 32 U/L (15-37); BICARBONATE 23.1 MEQ/L (21.0-32.0); BLOOD UREA NITROGEN 27 MG/DL (7-18); CHLORIDE 107 MEQ/L (98-107); GLOMERULAR FILTRATION RATE 38 ML/MIN (>89); MAGNESIUM 1.9 MG/DL (1.5-2.5); POTASSIUM 4.3 MEQ/L (3.5-5.1); SODIUM (NA) 138 MEQ/L (136-145)
[2016-10-26 08:09] LABS: ALKALINE PHOSPHATASE 47 U/L (45-117); ALT (GPT) 23 U/L (10-53); TOTAL BILIRUBIN ADULT 0.6 MG/DL (0.2-1.0)
[2016-10-26] MEDS: ESCITALOPRAM OXALATE 20 MG TAB PO SCH (09:08)
[2016-10-26] MEDS: SODIUM CHLORIDE 0.9% FLUSH 10 ML FLUSH IV FLUSH SCH ×2 (09:08→20:27)
[2016-10-26] MEDS: LORATADINE 10 MG TAB PO SCH (09:08)
[2016-10-26] MEDS: LEVOTHYROXINE SODIUM 75 MCG TAB PO SCH (09:09)
[2016-10-26] MEDS: PANTOPRAZOLE SOD 40 MG DELAYED RELEASE TAB PO SCH (09:09)
[2016-10-26] MEDS: ACETAMINOPHEN/HYDROcodone 325 MG/5 MG TAB PO PRN (09:09)
--- NOTE | 2016-10-26 09:35 | HHI.CCPN ---
Subjective Remarks/Hospital Course 89-year-old female. DNR status. Date of admission 10/25/2016. Past medical history includes depression/anxiety, hypothyroid, spinal stenosis/DJD, dyslipidemia, gastroesophageal reflux disease, COPD, peripheral neuropathy and chronic anemia. Patient presents to [facility] post fall after she was trying to transfer from bed to a wheelchair to go to the bathroom. X-rays reveal acute fracture to the right inferior and superior pubic ramus. Also had a supracondylar humerus fracture right side.. These are both been immobilized and wrapped in Filiberto bandage. Patient received a 500 cc bolus however was hypotensive. She is complaining of the very poor for the past several days. She received 50 g of albumin in 2 L normal saline she is currently normotensive. 10/26: Anemia after fall, Hgb 5.7, consistent with fracture site bleeding. Normotensive and diluted after crystalloid infusions. Transfuse 2 units PRBCs. Objective Vital Signs Date Time Temp Pulse Resp B/P (MAP) Pulse Ox O2 Delivery O2 Flow Rate FiO2 10/26/16 06:00 99 10/26/16 04:00 98.0 23 115/55 (75) 97 10/26/16 00:00 Nasal Cannula 4.00 Intake and Output 10/26/16 10/26/16 10/27/16 08:00 16:00 00:00 Intake Total 1650 ml Balance 1650 ml Result Diagram: 10/26/16 0642 10/26/16 0642 Imaging Last Impressions Chest X-Ray 10/25/16 1512 Signed Impressions: Service Date/Time: Tuesday, October 25, 2016 15:48 - CONCLUSION: 1. COPD changes. Negative for acute abnormality. Lucien Narayan MD Maxillofacial CT 10/25/16 1257 Signed Impressions: Service Date/Time: Tuesday, October 25, 2016 14:08 - CONCLUSION: Negative for fracture. Tubbs chronic sinus disease. Arik Narayan MD FACR Humerus X-Ray 10/25/16 1257 Signed Impressions: Service Date/Time: Tuesday, October 25, 2016 13:25 - CONCLUSION: Supracondylar humeral fracture in reasonable alignment. Arik Narayan MD FACR Hip and Pelvis X-Ray 10/25/16 1257 Signed Impressions: Service Date/Time: Tuesday, October 25, 2016 13:25 - CONCLUSION: Acute fracture inferior and superior pubic ramus on the right Previous hip nailing. Arik Narayan MD FACR Head CT 10/25/16 1257 Signed Impressions: Service Date/Time: Tuesday, October 25, 2016 14:08 - CONCLUSION: 1. Mild cerebral atrophy and moderate periventricular white matter small vessel ischemic changes bilaterally. 2. No acute infarct, acute hemorrhage, mass effect or extra-axial fluid collections. 3. Mucosal thickening involving the bilateral maxillary and sphenoid sinuses and left ethmoid air cells. Ed Maria MD Cervical Spine CT 10/25/16 1257 Signed Impressions: Service Date/Time: Tuesday, October 25, 2016 14:08 - CONCLUSION: 1. No acute fracture or prevertebral soft tissue swelling. 2. Stable chronic spinal stenosis at C5-6 and C6-7 with moderate bilateral foraminal narrowing at these levels. 3. Moderate left neural foraminal narrowing at C3-4 and C4-5. 4. Diffuse cervical spondylosis which is most severe at C5-6 and C6-7. 5. Straightening of the normal cervical lordosis. 6. Biapical scarring and pleural thickening which is unchanged compared to the previous examination. Ed Maria MD Lumbar Spine X-Ray 10/25/16 0000 Signed Impressions: Service Date/Time: Tuesday, October 25, 2016 20:53 - CONCLUSION: 1. No subluxation or definite acute fracture. 2. Chronic appearing loss of height towards the left of the L3 vertebral body and the pedicle screws appear to extend into the L2/L3 disc space. 3. Mild levoconvex curvature centered around L2/L3. Juarez Caro MD Objective Remarks GENERAL: 89-year-old female, resting in bed in no acute distress SKIN: Warm and dry. Ecchymoses right periorbital and face region HEAD: Atraumatic. Normocephalic. EYES: Pupils equal and round about 3 mm bilaterally and reactive. No scleral icterus. No injection or drainage. ENT: No nasal bleeding or discharge. Mucous membranes pink and moist. NECK: Trachea midline. Airway widely patent. CARDIOVASCULAR: Regular rate and rhythm. S1, S2. No S4. Neck veins flat. RESPIRATORY: No accessory muscle use. Clear to auscultation. Breath sounds equal bilaterally. Comfortable pattern GASTROINTESTINAL: Abdomen soft, non-tender, nondistended. Hepatic and splenic margins not palpable. No guarding. MUSCULOSKELETAL: Right upper extremity currently in soft cast. NEUROLOGICAL: Awake and alert. Remains pleasantly confused. No obvious cranial nerve deficits. Motor grossly within normal limits. Five out of 5 muscle strength in the arms and legs. Normal speech. A/P Assessment and Plan Neuro/Psych: History of vertigo Allergic rhinitis Acetaminophen for fever Hydrocodone/acetaminophen for pain Continue escitalopram 20 mg by mouth daily for depression Continue meclizine 12.5 mg by mouth 3 times a day for vertigo On loratadine 10 mg by mouth daily and Flonase for allergies CV: Hypotension likely hypovolemic History dyslipidemia Patient received 2 L normal saline and 50 g albumin. Currently normotensive Laboratories pending including lactate and troponin Follow-up on EKG Continue atorvastatin 20 mg by mouth daily for dyslipidemia Hgb 5.7 after 2+ liter dilution -> transfuse 2 units Resp: History COPD As needed albuterol nebulizers every 2 hours when necessary Nasal cannula to maintain saturations greater than equal to 92% GI: Gastroesophageal reflux disease Continue Protonix 40 mg by mouth daily/home medication Currently on heart healthy diet : Foster catheter if indicated for accurate I's nose Endo: Hypothyroidism Continue levothyroxine at 75 mg by mouth daily Renal: Follow-up on BMP. Currently pending Monitor urine output Accurate I's and O's Heme: Follow-up CBC ID: Monitor for infection Follow-up UA history of recurrent UTIs MSK: Right supracondylar humerus fracture Right acute fracture inferior and superior pubic rami Management per orthopedics. Currently immobilized. FEN: Replace electrolytes as clinically indicated Access - Utilize peripheral IV. Central line if indicated Prophylaxis - GI - pantoprazole - DVT - SCD/holding pharmacological prophylaxis Overall impression: Stable hemodynamics. Blood loss consistent with dilution after dehydration on arrival and fracture site blood loss. Sandeep Flor MD Oct 26, 2016 09:35
[2016-10-26] MEDS ORDERED: FUROSEMIDE 40 MG/4 ML VIAL IV PUSH ONE (09:45)
[2016-10-26] MEDS: RESP: ALBUTEROL 2.5 MG/IPRATROPIUM 0.5 MG NEB (PRN) NEB (10:26)
[2016-10-26] MEDS: ACETAMINOPHEN 325 MG TAB PO PRN ×3 (11:22→21:46)
[2016-10-26] MEDS: ENOXAPARIN SODIUM 30 MG/0.3 ML SYRINGE SQ SCH (16:28)
[2016-10-26 19:06] LABS: REVIEW FLAG FINAL
[2016-10-26] MEDS: ATORVASTATIN 20 MG TAB PO SCH (20:27)
[2016-10-27] VITALS (7 sets, daily range): BP systolic 94–127; BP diastolic 52–67; PULSE 77–90; RESP 18–20; TEMP 95.9–98.1; O2SAT 95–98
[2016-10-27] MEDS: ACETAMINOPHEN 325 MG TAB PO PRN ×4 (05:38→21:46)
[2016-10-27] MEDS: ESCITALOPRAM OXALATE 20 MG TAB PO SCH (07:57)
[2016-10-27] MEDS: SODIUM CHLORIDE 0.9% FLUSH 10 ML FLUSH IV FLUSH SCH ×2 (07:57→21:46)
[2016-10-27] MEDS: LORATADINE 10 MG TAB PO SCH (07:57)
[2016-10-27] MEDS: PANTOPRAZOLE SOD 40 MG DELAYED RELEASE TAB PO SCH (07:57)
[2016-10-27] MEDS: LEVOTHYROXINE SODIUM 75 MCG TAB PO SCH (07:57)
[2016-10-27 09:03] LABS: HEMATOCRIT 25.3 % (35.0-46.0); MEAN CELL VOLUME 92.7 FL (80.0-100.0); MEAN CORPUSCULAR HEMOGLOBIN 31.6 PG (27.0-34.0); PLATELET COUNT 75 TH/MM3 (150-450); RED BLOOD COUNT 2.73 MIL/MM3 (4.00-5.30); RED CELL DISTRIBUTION WIDTH 15.1 % (11.6-17.2); WHITE BLOOD COUNT 14.8 TH/MM3 (4.0-11.0)
[2016-10-27 09:06] LABS: REVIEW FLAG FINAL
[2016-10-27 09:22] LABS: BICARBONATE 25.4 MEQ/L (21.0-32.0); POTASSIUM 3.6 MEQ/L (3.5-5.1)
--- NOTE | 2016-10-27 14:05 | HHI.PR ---
Subjective Remarks Patient more alert today offers no specific complaints RN notified us regarding labial edema and ecchymosis Objective Vitals Vital Signs Date Time Temp Pulse Resp B/P (MAP) Pulse Ox O2 Delivery O2 Flow Rate FiO2 10/27/16 09:33 96 Nasal Cannula 2.00 10/27/16 08:00 96.7 87 20 127/67 (87) 98 10/27/16 06:39 Nasal Cannula 3.00 Humidified 10/27/16 00:35 98.1 89 19 94/52 (66) 95 10/26/16 20:35 98.9 85 19 95/52 (66) 98 10/26/16 20:00 98 Nasal Cannula 3.00 Humidified 10/26/16 17:55 Nasal Cannula 2.00 10/26/16 16:00 97.1 90 18 99/47 (64) 94 Result Diagram: 10/27/16 0810 10/27/16 0810 Other Results Last Impressions Chest X-Ray 10/25/16 1512 Signed Impressions: Service Date/Time: Tuesday, October 25, 2016 15:48 - CONCLUSION: 1. COPD changes. Negative for acute abnormality. Lucien Narayan MD Maxillofacial CT 10/25/16 1257 Signed Impressions: Service Date/Time: Tuesday, October 25, 2016 14:08 - CONCLUSION: Negative for fracture. Tubbs chronic sinus disease. Arik Narayan MD FACR Humerus X-Ray 10/25/16 1257 Signed Impressions: Service Date/Time: Tuesday, October 25, 2016 13:25 - CONCLUSION: Supracondylar humeral fracture in reasonable alignment. Arik Narayan MD FACR Hip and Pelvis X-Ray 10/25/16 1257 Signed Impressions: Service Date/Time: Tuesday, October 25, 2016 13:25 - CONCLUSION: Acute fracture inferior and superior pubic ramus on the right Previous hip nailing. Arik Narayan MD FACR Head CT 10/25/16 1257 Signed Impressions: Service Date/Time: Tuesday, October 25, 2016 14:08 - CONCLUSION: 1. Mild cerebral atrophy and moderate periventricular white matter small vessel ischemic changes bilaterally. 2. No acute infarct, acute hemorrhage, mass effect or extra-axial fluid collections. 3. Mucosal thickening involving the bilateral maxillary and sphenoid sinuses and left ethmoid air cells. Ed Maria MD Cervical Spine CT 10/25/16 1257 Signed Impressions: Service Date/Time: Tuesday, October 25, 2016 14:08 - CONCLUSION: 1. No acute fracture or prevertebral soft tissue swelling. 2. Stable chronic spinal stenosis at C5-6 and C6-7 with moderate bilateral foraminal narrowing at these levels. 3. Moderate left neural foraminal narrowing at C3-4 and C4-5. 4. Diffuse cervical spondylosis which is most severe at C5-6 and C6-7. 5. Straightening of the normal cervical lordosis. 6. Biapical scarring and pleural thickening which is unchanged compared to the previous examination. Ed Maria MD Lumbar Spine X-Ray 10/25/16 0000 Signed Impressions: Service Date/Time: Tuesday, October 25, 2016 20:53 - CONCLUSION: 1. No subluxation or definite acute fracture. 2. Chronic appearing loss of height towards the left of the L3 vertebral body and the pedicle screws appear to extend into the L2/L3 disc space. 3. Mild levoconvex curvature centered around L2/L3. Juarez Caro MD Imaging Last Impressions Maxillofacial CT 10/25/16 1257 Signed Impressions: Service Date/Time: Tuesday, October 25, 2016 14:08 - CONCLUSION: Negative for fracture. Tubbs chronic sinus disease. Arik Narayan MD FACR Humerus X-Ray 10/25/16 1257 Signed Impressions: Service Date/Time: Tuesday, October 25, 2016 13:25 - CONCLUSION: Supracondylar humeral fracture in reasonable alignment. Arik Narayan MD FACR Hip and Pelvis X-Ray 10/25/16 1257 Signed Impressions: Service Date/Time: Tuesday, October 25, 2016 13:25 - CONCLUSION: Acute fracture inferior and superior pubic ramus on the right Previous hip nailing. Arik Narayan MD FACR Head CT 10/25/16 1257 Signed Impressions: Service Date/Time: Tuesday, October 25, 2016 14:08 - CONCLUSION: 1. Mild cerebral atrophy and moderate periventricular white matter small vessel ischemic changes bilaterally. 2. No acute infarct, acute hemorrhage, mass effect or extra-axial fluid collections. 3. Mucosal thickening involving the bilateral maxillary and sphenoid sinuses and left ethmoid air cells. Ed Maria MD Objective Remarks GENERAL: This is a frail cachetic 89 year old elderly female SKIN:ecchymoses left side of face and labia/perineal area HEAD: ecchymosis left side of face NECK: Trachea midline. No JVD or lymphadenopathy. Supple, nontender, no meningeal signs. CARDIOVASCULAR: Regular rate and rhythm RESPIRATORY: Clear to auscultation. Breath sounds equal bilaterally. No wheezes , rales, or rhonchi. GASTROINTESTINAL: Abdomen soft, non-tender, nondistended. No guarding. MUSCULOSKELETAL: generalized muscular atrophy NEUROLOGICAL: Awake and alert. Motor and sensory grossly within normal limits. 3-4 out of 5 muscle strength in all muscle groups. A/P Problem List: (1) Fall ICD Codes: W19.XXXA - Unspecified fall, initial encounter Plan: Inferior and superior pubic ramus on right humeral fracture mechanical fall -imaging reviewed -Hip/Pelvis X-ray revealed fracture of the inferior and superior pubic ramus on right -Humerus X ray right supra condylar humeral fracture in reasonable alignment -Head CT reviewed and revealed no acute infarct, acute hemorrhage, mass effect or extra-axial fluid collection -Consult to Orthopedic surgery -Patient also reports back pain- Lumbar spine x ray -PT recommending rehab hypotension anemia severe -upon arrival to her room patient BP 66/41 -transferred to ICU -HGB 5.7 transfussed two units PRBC -hgb improved 8.6 (10/27) -BP improved -continue to monitor and repeat CBC in AM - discussed with patient and daughters at bedside they do not want aggressive evaluation/workup. Family would like patient to be stabilized then DC to SNF Patient is a DNR DVT prophylaxis Lovenox (2) Hypotension ICD Codes: I95.9 - Hypotension, unspecified Plan: upon arrival to her room patient BP 66/41 transferred to ICU HGB 5.7 transfussed two units PRBC hgb improved 8.6 (10/27) BP improved continue to monitor and repeat CBC in AM (3) Hypothyroid ICD Codes: E03.9 - Hypothyroid Status: Acute Plan: continue home levothyroxine (4) Hyperlipemia ICD Codes: E78.5 - Hyperlipemia Status: Acute Plan: continue Atorvastatin (5) GERD (gastroesophageal reflux disease) ICD Codes: K21.9 - GERD (gastroesophageal reflux disease) Status: Acute Plan: continue pantoprazole Assessment and Plan Patient examined. Assessment and plan formulated with Becky Serrano PA-C. I agree with the above. Hg and BP readings stable since transfusion 2 units PRBCs Repeat CBC in AM Becky Serrano Oct 27, 2016 14:05 Segun Jernigan DO Oct 28, 2016 15:31
--- NOTE | 2016-10-27 14:19 | PD.ORT.PN ---
Subjective Post Op Day #: 2 days post fx Pain Scale: comfortable Subjective Remarks OK Objective Vitals Vital Signs Date Time Temp Pulse Resp B/P (MAP) Pulse Ox O2 Delivery O2 Flow Rate FiO2 10/27/16 09:33 96 Nasal Cannula 2.00 10/27/16 08:00 96.7 87 20 127/67 (87) 98 10/27/16 06:39 Nasal Cannula 3.00 Humidified 10/27/16 00:35 98.1 89 19 94/52 (66) 95 10/26/16 20:35 98.9 85 19 95/52 (66) 98 10/26/16 20:00 98 Nasal Cannula 3.00 Humidified 10/26/16 17:55 Nasal Cannula 2.00 10/26/16 16:00 97.1 90 18 99/47 (64) 94 I/O 10/26/16 10/26/16 10/26/16 10/27/16 10/27/16 10/27/16 07:00 15:00 23:00 07:00 15:00 23:00 Intake Total 1650 ml 1200 ml 650 ml 240 ml Balance 1650 ml 1200 ml 650 ml 240 ml Intake Oral 60 ml 480 ml 240 ml 240 ml IV Total 1590 ml 300 ml Packed Cells 400 ml 400 ml Blood Product IV Normal Saline Flush 20 ml 10 ml # Voids 2 2 4 # Bowel Movements 1 1 3 Result Diagram: 10/27/16 0810 10/27/16 0810 Objective Remarks now in 1609, out of ISC, stable No NV deficit RUE Assessment & Plan Ortho Post Op Day #: 2 Problem List: Assessment and Plan Long arm fibreglass cast applied. Ok to be OOB and eventual placement in rehab. To seem e in office 10 days post DC withXrays pelvis and right elbow Jacky Valadez MD Oct 27, 2016 14:19
--- NOTE | 2016-10-27 14:56 | RADRPT ---
EXAM DATE/TIME: 10/27/2016 14:17 [facility] COMPARISON: HUMERUS RIGHT (MIN 2VWS), October 25, 2016, 13:25. INDICATIONS : Post casting right distal humerus fracture. MEDICAL HISTORY : Chronic obstructive pulmonary disease. SURGICAL HISTORY : Hysterectomy. Appendectomy. ENCOUNTER: Initial ACUITY: 3 days PAIN SCORE: 3/10 LOCATION: Right Distal humerus FINDINGS: Interval casting of supracondylar distal right humeral fracture. There is near-anatomic alignment. No additional new significant acute bony fractures. CONCLUSION: 1. Interval casting of distal right humeral supracondylar fracture in near-anatomic alignment. Rodriguez Golden MD on October 27, 2016 at 14:52 Board Certified Radiologist. This report was verified electronically.
[2016-10-27] MEDS: ENOXAPARIN SODIUM 30 MG/0.3 ML SYRINGE SQ SCH (17:20)
--- NOTE | 2016-10-27 18:58 | RADRPT ---
EXAM DATE/TIME: 10/27/2016 18:02 [facility] COMPARISON: No previous studies available for comparison. INDICATIONS : Leg pain. MEDICAL HISTORY : Gastroesophageal reflux disease. Arthritis. Thryroid disease. Spinal stenosis. Anemia. Osteoporos is. SURGICAL HISTORY : Tonsillectomy. Hysterectomy. Appendectomy. Cataracts. . Nasal fracture. ENCOUNTER: Initial ACUITY: 1 day PAIN SCORE: 6/10 LOCATION: Left leg. TECHNIQUE: Venous ultrasound of the leg was performed from the inguinal ligament to the proximal calf. Real-rivera e, color Doppler and spectral tracing, compression and augmentation techniques were used. FINDINGS: There is occlusive thrombus below the knee in the left posterior tibial vein. There is nonocclusive t hrombus above the knee in the common femoral vein. Other venous tributaries of the left lower extremi ty are patent. CONCLUSION: Study is positive for DVT of the left lower extremity involving the common femoral vein and the poste rior tibial vein. Juarez Caro MD on October 27, 2016 at 18:56 Board Certified Radiologist. This report was verified electronically.
[2016-10-27] MEDS: ATORVASTATIN 20 MG TAB PO SCH (21:46)
[2016-10-28] VITALS (9 sets, daily range): BP systolic 96–115; BP diastolic 49–60; PULSE 85–98; RESP 16–19; TEMP 96.8–98.4; O2SAT 94–99
[2016-10-28] MEDS: ACETAMINOPHEN 325 MG TAB PO PRN ×3 (04:50→14:10)
[2016-10-28 07:12] LABS: AUTOMATED NEUTROPHIL # 12.9 TH/MM3 (1.8-7.7); BASOPHIL % 0.1 % (0.0-2.0); EOSINOPHIL % 0.1 % (0.0-4.0); HEMATOCRIT 22.2 % (35.0-46.0); LYMPH % 11.1 % (9.0-44.0); LYMPHOCYTE # 1.8 TH/MM3 (1.0-4.8); MEAN CELL VOLUME 94.2 FL (80.0-100.0); MEAN CORPUSCULAR HEMOGLOBIN 31.8 PG (27.0-34.0); MEAN CORPUSCULAR HGB CONC 33.8 % (32.0-36.0); MONO % 9.6 % (0.0-8.0); NEUT % 79.1 % (16.0-70.0); PLATELET COUNT 75 TH/MM3 (150-450); RED BLOOD COUNT 2.36 MIL/MM3 (4.00-5.30); RED CELL DISTRIBUTION WIDTH 15.1 % (11.6-17.2); WHITE BLOOD COUNT 16.3 TH/MM3 (4.0-11.0)
[2016-10-28 07:23] LABS: HEMO FLAGS AUTO DIFF
[2016-10-28 08:08] LABS: PLATELET ESTIMATE SMEAR LOW (NORMAL); PLATELET MORPHOLOGY NORMAL (NORMAL); SCAN/DIFF AUTO DIFF CONFIRMED
--- NOTE | 2016-10-28 08:21 | HHI.PR ---
Subjective Remarks Patient awake and alert eating breakfast with the assistance of an aide denies pain at this time offers no specific complaints Objective Vitals Vital Signs Date Time Temp Pulse Resp B/P (MAP) Pulse Ox O2 Delivery O2 Flow Rate FiO2 10/28/16 00:38 96.9 91 19 106/54 (71) 99 10/27/16 20:40 96.8 90 18 107/57 (74) 96 10/27/16 20:00 96 Nasal Cannula 2.00 Humidified 10/27/16 17:46 96 Nasal Cannula 2.00 10/27/16 16:00 96.2 90 20 107/58 (74) 96 10/27/16 12:00 95.9 77 20 109/56 (73) 96 10/27/16 09:33 96 Nasal Cannula 2.00 Result Diagram: 10/28/16 0633 10/27/16 0810 Other Results Laboratory Tests Test 10/26/16 00:10 10/26/16 06:42 10/26/16 18:37 10/27/16 08:10 Nasal Screen MRSA (PCR) MRSA DETECTED White Blood Count 13.3 TH/MM3 14.8 TH/MM3 Red Blood Count 1.73 MIL/MM3 2.73 MIL/MM3 Hemoglobin 5.7 GM/DL 9.9 GM/DL 8.6 GM/DL Hematocrit 17.2 % 29.0 % 25.3 % Mean Corpuscular Volume 99.9 FL 92.7 FL Mean Corpuscular Hemoglobin 33.2 PG 31.6 PG Mean Corpuscular Hemoglobin Concent 33.2 % 34.0 % Red Cell Distribution Width 13.1 % 15.1 % Platelet Count 111 TH/MM3 75 TH/MM3 Mean Platelet Volume 8.7 FL 8.9 FL Neutrophils (%) (Auto) 77.6 % Lymphocytes (%) (Auto) 12.1 % Monocytes (%) (Auto) 10.3 % Eosinophils (%) (Auto) 0.0 % Basophils (%) (Auto) 0.0 % Neutrophils # (Auto) 10.3 TH/MM3 Lymphocytes # (Auto) 1.6 TH/MM3 Monocytes # (Auto) 1.4 TH/MM3 Eosinophils # (Auto) 0.0 TH/MM3 Basophils # (Auto) 0.0 TH/MM3 CBC Comment DIFF FINAL Differential Comment Prothrombin Time 13.9 SEC Prothromb Time International Ratio 1.2 RATIO Activated Partial Thromboplast Time 37.8 SEC Fibrinogen 181 mg/dL Blood Urea Nitrogen 27 MG/DL 27 MG/DL Creatinine 1.33 MG/DL 0.83 MG/DL Random Glucose 146 MG/DL 125 MG/DL Total Protein 6.1 GM/DL Albumin 3.7 GM/DL Calcium Level 8.8 MG/DL 9.3 MG/DL Phosphorus Level 3.6 MG/DL Magnesium Level 1.9 MG/DL Alkaline Phosphatase 47 U/L Aspartate Amino Transf (AST/SGOT) 32 U/L Alanine Aminotransferase (ALT/SGPT) 23 U/L Total Bilirubin 0.6 MG/DL Sodium Level 138 MEQ/L 136 MEQ/L Potassium Level 4.3 MEQ/L 3.6 MEQ/L Chloride Level 107 MEQ/L 105 MEQ/L Carbon Dioxide Level 23.1 MEQ/L 25.4 MEQ/L Anion Gap 8 MEQ/L 6 MEQ/L Estimat Glomerular Filtration Rate 38 ML/MIN 65 ML/MIN Lactic Acid Level 1.2 mmol/L Troponin I 0.10 NG/ML Thyroid Stimulating Hormone 3rd Gen 0.968 uIU/ML Test 10/28/16 06:33 White Blood Count 16.3 TH/MM3 Red Blood Count 2.36 MIL/MM3 Hemoglobin 7.5 GM/DL Hematocrit 22.2 % Mean Corpuscular Volume 94.2 FL Mean Corpuscular Hemoglobin 31.8 PG Mean Corpuscular Hemoglobin Concent 33.8 % Red Cell Distribution Width 15.1 % Platelet Count 75 TH/MM3 Mean Platelet Volume 9.8 FL Neutrophils (%) (Auto) 79.1 % Lymphocytes (%) (Auto) 11.1 % Monocytes (%) (Auto) 9.6 % Eosinophils (%) (Auto) 0.1 % Basophils (%) (Auto) 0.1 % Neutrophils # (Auto) 12.9 TH/MM3 Lymphocytes # (Auto) 1.8 TH/MM3 Monocytes # (Auto) 1.6 TH/MM3 Eosinophils # (Auto) 0.0 TH/MM3 Basophils # (Auto) 0.0 TH/MM3 CBC Comment AUTO DIFF Differential Comment AUTO DIFF CONFIRMED Platelet Estimate LOW Platelet Morphology Comment NORMAL Imaging Last Impressions Maxillofacial CT 10/25/16 1257 Signed Impressions: Service Date/Time: Tuesday, October 25, 2016 14:08 - CONCLUSION: Negative for fracture. Tubbs chronic sinus disease. Arik Narayan MD FACR Humerus X-Ray 10/25/16 1257 Signed Impressions: Service Date/Time: Tuesday, October 25, 2016 13:25 - CONCLUSION: Supracondylar humeral fracture in reasonable alignment. Arik Narayan MD FACR Hip and Pelvis X-Ray 10/25/16 1257 Signed Impressions: Service Date/Time: Tuesday, October 25, 2016 13:25 - CONCLUSION: Acute fracture inferior and superior pubic ramus on the right Previous hip nailing. Arik Narayan MD FACR Head CT 10/25/16 1257 Signed Impressions: Service Date/Time: Tuesday, October 25, 2016 14:08 - CONCLUSION: 1. Mild cerebral atrophy and moderate periventricular white matter small vessel ischemic changes bilaterally. 2. No acute infarct, acute hemorrhage, mass effect or extra-axial fluid collections. 3. Mucosal thickening involving the bilateral maxillary and sphenoid sinuses and left ethmoid air cells. Ed Maria MD Objective Remarks GENERAL: This is a frail cachetic 89 year old elderly female SKIN:ecchymoses left side of face and labia/perineal area HEAD: ecchymosis left side of face NECK: Trachea midline. No JVD or lymphadenopathy. Supple, nontender, no meningeal signs. CARDIOVASCULAR: Regular rate and rhythm RESPIRATORY: Clear to auscultation. Breath sounds equal bilaterally. No wheezes , rales, or rhonchi. GASTROINTESTINAL: Abdomen soft, non-tender, nondistended. No guarding. MUSCULOSKELETAL: generalized muscular atrophy NEUROLOGICAL: Awake and alert. Motor and sensory grossly within normal limits. 3-4 out of 5 muscle strength in all muscle groups. A/P Problem List: (1) Fall ICD Codes: W19.XXXA - Unspecified fall, initial encounter Plan: Inferior and superior pubic ramus on right humeral fracture mechanical fall -imaging reviewed -Hip/Pelvis X-ray revealed fracture of the inferior and superior pubic ramus on right -Humerus X ray right supra condylar humeral fracture in reasonable alignment- long arm Fiberglas cast in place -Head CT reviewed and revealed no acute infarct, acute hemorrhage, mass effect or extra-axial fluid collection -Consult to Orthopedic surgery, recommend DC with xarys of pelvis and right elbow, follow up in office in 10 days -Patient also reports back pain- Lumbar spine x ray -PT recommending rehab hypotension anemia severe -upon arrival to her room patient BP 66/41 -transferred to ICU -HGB 5.7 transfussed two units PRBC -hgb improved 8.6 (10/27) --> 7.5 (10/28) -BP improved - discussed with patient and daughters at bedside they do not want aggressive evaluation/workup. Family would like patient to be stabilized then DC to SNF DVT Left common femoral vein and posterior tibial vein -due to patient's anemia difficult to anticoagulate will discuss options further with patient's daughter Maggie once she arrives to the hospital Patient is a DNR DVT prophylaxis Lovenox Addendum: GI bleed: received call from RN on the floor that patient had maroon colored blood from rectum during turning. Stat H&H ordered Lovenox placed on hold Lengthy discussion with patient and daughter Maggie by myself and Dr. Cam explaining current condition and options. Patient A&Ox3 and expresses that she does not want any further procedures including specifically colonoscopy, DVT filter placement or blood thinner to treat DVT. Patient expresses the desire to meet with hospice and her main goal is to be comfortable. Hospice consult placed. (2) Hypotension ICD Codes: I95.9 - Hypotension, unspecified Plan: upon arrival to her room patient BP 66/41 transferred to ICU HGB 5.7 transfussed two units PRBC hgb improved 8.6 (10/27) BP improved see above (3) Hypothyroid ICD Codes: E03.9 - Hypothyroid Status: Acute Plan: continue home levothyroxine (4) Hyperlipemia ICD Codes: E78.5 - Hyperlipemia Status: Acute Plan: continue Atorvastatin (5) GERD (gastroesophageal reflux disease) ICD Codes: K21.9 - GERD (gastroesophageal reflux disease) Status: Acute Plan: continue pantoprazole Assessment and Plan Patient examined. Assessment and plan formulated with Becky Serrano PA-C. I agree with the above. dvt. gib. pelvic/humerus fx Long talk with pt and daughter. she wants to avoid procedures and anticoagulation will be difficult. She wants dnr and to move toward comfort care. She would like to speak with hospice today. blood transfusion ordered. Becky Serrano Oct 28, 2016 08:21 Luis Antonio Cam MD Oct 28, 2016 23:03
[2016-10-28] MEDS: ESCITALOPRAM OXALATE 20 MG TAB PO SCH (10:01)
[2016-10-28] MEDS: SODIUM CHLORIDE 0.9% FLUSH 10 ML FLUSH IV FLUSH SCH ×2 (10:02→19:45)
[2016-10-28] MEDS: LORATADINE 10 MG TAB PO SCH (10:02)
[2016-10-28] MEDS: PANTOPRAZOLE SOD 40 MG DELAYED RELEASE TAB PO SCH (10:02)
[2016-10-28] MEDS: LEVOTHYROXINE SODIUM 75 MCG TAB PO SCH (10:02)
[2016-10-28 13:52] LABS: HEMATOCRIT 21.2 % (35.0-46.0)
[2016-10-28] MEDS ORDERED: SODIUM CHLOR 0.9% 250 ML INJ 250 ML IV ONE (14:00)
[2016-10-28] MEDS: ATORVASTATIN 20 MG TAB PO SCH (19:45)
[2016-10-29] VITALS (7 sets, daily range): BP systolic 95–121; BP diastolic 52–73; PULSE 79–91; RESP 16–18; TEMP 96.4–98.4; O2SAT 94–98
[2016-10-29 08:28] LABS: AUTOMATED NEUTROPHIL # 10.4 TH/MM3 (1.8-7.7); BASOPHIL % 0.2 % (0.0-2.0); EOSINOPHIL # 0.1 TH/MM3 (0-0.4); EOSINOPHIL % 0.5 % (0.0-4.0); HEMATOCRIT 30.2 % (35.0-46.0); LYMPH % 16.7 % (9.0-44.0); LYMPHOCYTE # 2.5 TH/MM3 (1.0-4.8); MEAN CELL VOLUME 92.6 FL (80.0-100.0); MEAN CORPUSCULAR HEMOGLOBIN 31.6 PG (27.0-34.0); MEAN CORPUSCULAR HGB CONC 34.1 % (32.0-36.0); MONO % 13.8 % (0.0-8.0); NEUT % 68.8 % (16.0-70.0); PLATELET COUNT 69 TH/MM3 (150-450); RED BLOOD COUNT 3.26 MIL/MM3 (4.00-5.30); RED CELL DISTRIBUTION WIDTH 15.4 % (11.6-17.2); WHITE BLOOD COUNT 15.1 TH/MM3 (4.0-11.0)
[2016-10-29 08:39] LABS: HEMO FLAGS AUTO DIFF
--- NOTE | 2016-10-29 08:48 | HHI.PR ---
Subjective Remarks Patient resting in bed reports pain pelvic area offers no other specific complaints Planning to meet with hospice at 1500 today Objective Vitals Vital Signs Date Time Temp Pulse Resp B/P (MAP) Pulse Ox O2 Delivery O2 Flow Rate FiO2 10/29/16 01:57 96.9 87 16 117/59 95 10/29/16 00:00 98.3 86 17 105/73 (84) 94 10/28/16 22:12 97.7 85 16 97/55 97 10/28/16 21:57 98.4 91 17 100/50 96 10/28/16 21:25 98.4 91 17 100/50 96 10/28/16 20:33 Nasal Cannula 2.00 10/28/16 17:42 97.0 90 17 96/52 99 10/28/16 17:27 97.6 90 16 98/49 96 10/28/16 16:00 97.0 90 16 115/59 (77) 94 10/28/16 12:00 96.8 95 19 115/60 (78) 94 Result Diagram: 10/29/16 0550 10/27/16 0810 Other Results Laboratory Tests Test 10/26/16 18:37 10/27/16 08:10 10/28/16 06:33 10/28/16 12:00 Hemoglobin 9.9 GM/DL 8.6 GM/DL 7.5 GM/DL 7.0 GM/DL Hematocrit 29.0 % 25.3 % 22.2 % 21.2 % White Blood Count 14.8 TH/MM3 16.3 TH/MM3 Red Blood Count 2.73 MIL/MM3 2.36 MIL/MM3 Mean Corpuscular Volume 92.7 FL 94.2 FL Mean Corpuscular Hemoglobin 31.6 PG 31.8 PG Mean Corpuscular Hemoglobin Concent 34.0 % 33.8 % Red Cell Distribution Width 15.1 % 15.1 % Platelet Count 75 TH/MM3 75 TH/MM3 Mean Platelet Volume 8.9 FL 9.8 FL Blood Urea Nitrogen 27 MG/DL Creatinine 0.83 MG/DL Random Glucose 125 MG/DL Calcium Level 9.3 MG/DL Sodium Level 136 MEQ/L Potassium Level 3.6 MEQ/L Chloride Level 105 MEQ/L Carbon Dioxide Level 25.4 MEQ/L Anion Gap 6 MEQ/L Estimat Glomerular Filtration Rate 65 ML/MIN Neutrophils (%) (Auto) 79.1 % Lymphocytes (%) (Auto) 11.1 % Monocytes (%) (Auto) 9.6 % Eosinophils (%) (Auto) 0.1 % Basophils (%) (Auto) 0.1 % Neutrophils # (Auto) 12.9 TH/MM3 Lymphocytes # (Auto) 1.8 TH/MM3 Monocytes # (Auto) 1.6 TH/MM3 Eosinophils # (Auto) 0.0 TH/MM3 Basophils # (Auto) 0.0 TH/MM3 CBC Comment AUTO DIFF Differential Comment AUTO DIFF CONFIRMED Platelet Estimate LOW Platelet Morphology Comment NORMAL Test 10/29/16 05:50 White Blood Count 15.1 TH/MM3 Red Blood Count 3.26 MIL/MM3 Hemoglobin 10.3 GM/DL Hematocrit 30.2 % Mean Corpuscular Volume 92.6 FL Mean Corpuscular Hemoglobin 31.6 PG Mean Corpuscular Hemoglobin Concent 34.1 % Red Cell Distribution Width 15.4 % Platelet Count 69 TH/MM3 Mean Platelet Volume 9.3 FL Neutrophils (%) (Auto) 68.8 % Lymphocytes (%) (Auto) 16.7 % Monocytes (%) (Auto) 13.8 % Eosinophils (%) (Auto) 0.5 % Basophils (%) (Auto) 0.2 % Neutrophils # (Auto) 10.4 TH/MM3 Lymphocytes # (Auto) 2.5 TH/MM3 Monocytes # (Auto) 2.1 TH/MM3 Eosinophils # (Auto) 0.1 TH/MM3 Basophils # (Auto) 0.0 TH/MM3 CBC Comment AUTO DIFF Imaging Last Impressions Maxillofacial CT 10/25/16 1257 Signed Impressions: Service Date/Time: Tuesday, October 25, 2016 14:08 - CONCLUSION: Negative for fracture. Tubbs chronic sinus disease. Arik Narayan MD FACR Humerus X-Ray 10/25/16 1257 Signed Impressions: Service Date/Time: Tuesday, October 25, 2016 13:25 - CONCLUSION: Supracondylar humeral fracture in reasonable alignment. Arik Narayan MD FACR Hip and Pelvis X-Ray 10/25/16 1257 Signed Impressions: Service Date/Time: Tuesday, October 25, 2016 13:25 - CONCLUSION: Acute fracture inferior and superior pubic ramus on the right Previous hip nailing. Arik Narayan MD FACR Head CT 10/25/16 1257 Signed Impressions: Service Date/Time: Tuesday, October 25, 2016 14:08 - CONCLUSION: 1. Mild cerebral atrophy and moderate periventricular white matter small vessel ischemic changes bilaterally. 2. No acute infarct, acute hemorrhage, mass effect or extra-axial fluid collections. 3. Mucosal thickening involving the bilateral maxillary and sphenoid sinuses and left ethmoid air cells. Ed Maria MD Objective Remarks GENERAL: This is a frail cachetic 89 year old elderly female SKIN:ecchymoses left side of face, right hip and labia/perineal area HEAD: ecchymosis left side of face CARDIOVASCULAR: Regular rate and rhythm RESPIRATORY: Clear to auscultation. Breath sounds equal bilaterally. No wheezes , rales, or rhonchi. GASTROINTESTINAL: Abdomen soft, non-tender, nondistended. No guarding. MUSCULOSKELETAL: generalized muscular atrophy NEUROLOGICAL: Awake and alert. Motor and sensory grossly within normal limits. 3-4 out of 5 muscle strength in all muscle groups. A/P Problem List: (1) Fall ICD Codes: W19.XXXA - Unspecified fall, initial encounter Plan: Inferior and superior pubic ramus on right humeral fracture mechanical fall -imaging reviewed -Hip/Pelvis X-ray revealed fracture of the inferior and superior pubic ramus on right -Humerus X ray right supra condylar humeral fracture in reasonable alignment- long arm Fiberglas cast in place -Head CT reviewed and revealed no acute infarct, acute hemorrhage, mass effect or extra-axial fluid collection -Consult to Orthopedic surgery, recommend DC with xarys of pelvis and right elbow, follow up in office in 10 days -Patient also reports back pain- Lumbar spine x ray -PT recommending rehab hypotension anemia severe -upon arrival to her room patient BP 66/41 -transferred to ICU -HGB 5.7 transfussed two units PRBC (10/26) -hgb improved 8.6 (10/27) --> 7.5 (10/28) -BP improved - discussed with patient and daughters at bedside they do not want aggressive evaluation/workup. Family would like patient to be stabilized then DC to SNF DVT Left common femoral vein and posterior tibial vein options including anticoagulation after GI evaluations, filter placement and no treatment discussed with patient and daughter Maggie patient and daughter understand the risks and would like no treatment at this point await hospice meeting at 1500 today Suspected GI bleed (10/28)received call from RN on the floor that patient had maroon colored blood from rectum during turning. Lovenox placed on hold S/P 2 units PRBC (10/26 and 2 units PRBC (10/28) hgb 10.3 (10/29) Lengthy discussion with patient and daughter Maggie by myself and Dr. Cam explaining current condition and options. Patient A&Ox3 and expresses that she does not want any further procedures including specifically colonoscopy, DVT filter placement or blood thinner to treat DVT. Patient expresses the desire to meet with hospice and her main goal is to be comfortable. Hospice consult placed plan to have family meeting today at 1500 Patient is a DNR (2) Hypotension ICD Codes: I95.9 - Hypotension, unspecified Plan: upon arrival to her room patient BP 66/41 transferred to ICU HGB 5.7 transfussed two units PRBC hgb improved 8.6 (10/27) BP improved see above (3) Hypothyroid ICD Codes: E03.9 - Hypothyroid Status: Acute Plan: continue home levothyroxine (4) Hyperlipemia ICD Codes: E78.5 - Hyperlipemia Status: Acute Plan: continue Atorvastatin (5) GERD (gastroesophageal reflux disease) ICD Codes: K21.9 - GERD (gastroesophageal reflux disease) Status: Acute Plan: continue pantoprazole Assessment and Plan Patient examined. Assessment and plan formulated with Becky Serrano PA-C. I agree with the above. dvt. gib. pelvic/humerus fx Long talk with pt and daughter. she wants to avoid procedures and anticoagulation will be difficult. She wants dnr and to move toward comfort care. She would like to speak with hospice today. blood transfusion ordered. Becky Serrano Oct 29, 2016 08:48
[2016-10-29] MEDS: PANTOPRAZOLE SOD 40 MG DELAYED RELEASE TAB PO SCH (09:30)
[2016-10-29] MEDS: ACETAMINOPHEN 325 MG TAB PO PRN ×3 (09:31→21:46)
[2016-10-29] MEDS: SODIUM CHLORIDE 0.9% FLUSH 10 ML FLUSH IV FLUSH SCH ×2 (09:31→19:36)
[2016-10-29] MEDS: LORATADINE 10 MG TAB PO SCH (09:31)
[2016-10-29] MEDS: ESCITALOPRAM OXALATE 20 MG TAB PO SCH (09:31)
[2016-10-29] MEDS: LEVOTHYROXINE SODIUM 75 MCG TAB PO SCH (09:31)
[2016-10-29 10:08] LABS: PLATELET ESTIMATE SMEAR LOW (NORMAL); PLATELET MORPHOLOGY NORMAL (NORMAL); SCAN/DIFF AUTO DIFF CONFIRMED
[2016-10-29] MEDS: ATORVASTATIN 20 MG TAB PO SCH (19:36)
[2016-10-30 04:49] VITALS: BP 126/57; PULSE 87; RESP 17; TEMP 96.8; O2SAT 94
[2016-10-30 08:00] VITALS: BP 129/62; PULSE 91; RESP 18; TEMP 96.5; O2SAT 94
--- NOTE | 2016-10-30 08:54 | HHI.PR ---
Subjective Remarks No complaints from the patient at time of examination this morning. Nursing staff reports that there was no further bloody stools. She had a brown BM reported last night. Objective Vitals Vital Signs Date Time Temp Pulse Resp B/P (MAP) Pulse Ox O2 Delivery O2 Flow Rate FiO2 10/30/16 04:49 96.8 87 17 126/57 (80) 94 10/29/16 23:51 96.7 79 17 103/52 (69) 95 10/29/16 19:25 98.4 89 17 99/63 (75) 97 10/29/16 16:00 97.6 89 18 121/66 (84) 97 10/29/16 12:14 21 10/29/16 12:00 96.4 91 18 95/60 (72) 97 Result Diagram: 10/29/16 0550 10/27/16 0810 Other Results Laboratory Tests Test 10/28/16 12:00 10/29/16 05:50 Hemoglobin 7.0 GM/DL 10.3 GM/DL Hematocrit 21.2 % 30.2 % White Blood Count 15.1 TH/MM3 Red Blood Count 3.26 MIL/MM3 Mean Corpuscular Volume 92.6 FL Mean Corpuscular Hemoglobin 31.6 PG Mean Corpuscular Hemoglobin Concent 34.1 % Red Cell Distribution Width 15.4 % Platelet Count 69 TH/MM3 Mean Platelet Volume 9.3 FL Neutrophils (%) (Auto) 68.8 % Lymphocytes (%) (Auto) 16.7 % Monocytes (%) (Auto) 13.8 % Eosinophils (%) (Auto) 0.5 % Basophils (%) (Auto) 0.2 % Neutrophils # (Auto) 10.4 TH/MM3 Lymphocytes # (Auto) 2.5 TH/MM3 Monocytes # (Auto) 2.1 TH/MM3 Eosinophils # (Auto) 0.1 TH/MM3 Basophils # (Auto) 0.0 TH/MM3 CBC Comment AUTO DIFF Differential Comment AUTO DIFF CONFIRMED Platelet Estimate LOW Platelet Morphology Comment NORMAL Imaging Last Impressions Lower Extremity Ultrasound 10/27/16 0000 Signed Impressions: Service Date/Time: Thursday, October 27, 2016 18:02 - CONCLUSION: Study is positive for DVT of the left lower extremity involving the common femoral vein and the posterior tibial vein. Juarez Caro MD Elbow X-Ray 10/27/16 0000 Signed Impressions: Service Date/Time: Thursday, October 27, 2016 14:17 - CONCLUSION: 1. Interval casting of distal right humeral supracondylar fracture in near-anatomic alignment. Rodriguez Golden MD Chest X-Ray 10/25/16 1512 Signed Impressions: Service Date/Time: Tuesday, October 25, 2016 15:48 - CONCLUSION: 1. COPD changes. Negative for acute abnormality. Lucien Narayan MD Maxillofacial CT 10/25/16 1257 Signed Impressions: Service Date/Time: Tuesday, October 25, 2016 14:08 - CONCLUSION: Negative for fracture. Tubbs chronic sinus disease. Arik Narayan MD FACR Humerus X-Ray 10/25/16 1257 Signed Impressions: Service Date/Time: Tuesday, October 25, 2016 13:25 - CONCLUSION: Supracondylar humeral fracture in reasonable alignment. Arik Narayan MD FACR Hip and Pelvis X-Ray 10/25/16 1257 Signed Impressions: Service Date/Time: Tuesday, October 25, 2016 13:25 - CONCLUSION: Acute fracture inferior and superior pubic ramus on the right Previous hip nailing. Arik Narayan MD FACR Head CT 10/25/16 1257 Signed Impressions: Service Date/Time: Tuesday, October 25, 2016 14:08 - CONCLUSION: 1. Mild cerebral atrophy and moderate periventricular white matter small vessel ischemic changes bilaterally. 2. No acute infarct, acute hemorrhage, mass effect or extra-axial fluid collections. 3. Mucosal thickening involving the bilateral maxillary and sphenoid sinuses and left ethmoid air cells. Ed Maria MD Cervical Spine CT 10/25/16 1257 Signed Impressions: Service Date/Time: Tuesday, October 25, 2016 14:08 - CONCLUSION: 1. No acute fracture or prevertebral soft tissue swelling. 2. Stable chronic spinal stenosis at C5-6 and C6-7 with moderate bilateral foraminal narrowing at these levels. 3. Moderate left neural foraminal narrowing at C3-4 and C4-5. 4. Diffuse cervical spondylosis which is most severe at C5-6 and C6-7. 5. Straightening of the normal cervical lordosis. 6. Biapical scarring and pleural thickening which is unchanged compared to the previous examination. Ed Maria MD Lumbar Spine X-Ray 10/25/16 0000 Signed Impressions: Service Date/Time: Tuesday, October 25, 2016 20:53 - CONCLUSION: 1. No subluxation or definite acute fracture. 2. Chronic appearing loss of height towards the left of the L3 vertebral body and the pedicle screws appear to extend into the L2/L3 disc space. 3. Mild levoconvex curvature centered around L2/L3. Juarez Caro MD Last Impressions Maxillofacial CT 10/25/16 1257 Signed Impressions: Service Date/Time: Tuesday, October 25, 2016 14:08 - CONCLUSION: Negative for fracture. Tubbs chronic sinus disease. Arik Narayan MD FACR Humerus X-Ray 10/25/16 1257 Signed Impressions: Service Date/Time: Tuesday, October 25, 2016 13:25 - CONCLUSION: Supracondylar humeral fracture in reasonable alignment. Arik Narayan MD FACR Hip and Pelvis X-Ray 10/25/16 1257 Signed Impressions: Service Date/Time: Tuesday, October 25, 2016 13:25 - CONCLUSION: Acute fracture inferior and superior pubic ramus on the right Previous hip nailing. Arik Narayan MD FACR Head CT 10/25/16 1257 Signed Impressions: Service Date/Time: Tuesday, October 25, 2016 14:08 - CONCLUSION: 1. Mild cerebral atrophy and moderate periventricular white matter small vessel ischemic changes bilaterally. 2. No acute infarct, acute hemorrhage, mass effect or extra-axial fluid collections. 3. Mucosal thickening involving the bilateral maxillary and sphenoid sinuses and left ethmoid air cells. Ed Maria MD Objective Remarks GENERAL: This is a frail cachetic 89 year old elderly female SKIN:ecchymoses left side of face, right hip and labia/perineal area HEAD: ecchymosis left side of face CARDIO: Regular RESP: CTA ABD: +BS, soft, non-tender, nondistended. No guarding. EXT: generalized muscular atrophy A/P Problem List: (1) Fall ICD Codes: W19.XXXA - Unspecified fall, initial encounter Plan: - Pt is an 89 y/o female who was brought in after a mechanical fall and found to have an inferior and superior pubic rami fracture on right and a right humeral fracture - Hip/Pelvis X-ray revealed fracture of the inferior and superior pubic ramus on right - Humerus X ray right supra condylar humeral fracture in reasonable alignment- long arm Fiberglas cast in place - Head CT reviewed and revealed no acute infarct, acute hemorrhage, mass effect or extra-axial fluid collection - Orthopedic surgery recommend DC with X-rays of pelvis and right elbow with follow up in office in 10 days - Patient also reported back pain- Lumbar spine x ray (10/25) --> No subluxation or definite acute fracture. Chronic appearing loss of height towards the left of the L3 vertebral body and the pedicle screws appear to extend into the L2/L3 disc space. Mild levoconvex curvature centered around L2/L3. - PT recommending rehab - Pt is a DNR (2) Hypotension ICD Codes: I95.9 - Hypotension, unspecified Plan: - Upon arrival to her room patients BP was 66/41 and she was transferred to ICU - Her Hgb 5.7 (10/26) and she was transfused two units PRBCs - Hgb improved 8.6 (10/27) - BP improved - discussed with patient and daughters at bedside they do not want aggressive evaluation/workup. (3) Anemia ICD Codes: D64.9 - Anemia, unspecified Status: Chronic Plan: - Suspected GI bleed - On 10/28 received call from RN on the floor that patient had maroon colored blood from rectum during turning. - Lovenox placed on hold - Labs repeated at noon on 10/28 with a noted decrease in Hgb from 7.5 to 7.0 - Pt transfused another 2 units PRBC on 10/28 - Repeat Hgb 10.3 (10/29) - Lengthy discussion with patient and daughter Maggie with Dr. Cam explaining current condition and options. Patient A&Ox3 and expresses that she does not want any further procedures including specifically colonoscopy, DVT filter placement or blood thinner to treat DVT. Patient expresses the desire to meet with hospice and her main goal is to be comfortable. Pt and family met with Hospice on 10/29. It was felt that the pt may be a candidate for admission to [facility] if goals are appropriate. Family is to meet with Palliative Care team today to discuss goals of care. - Patient is a DNR (4) DVT (deep venous thrombosis) ICD Codes: I82.409 - Acute embolism and thrombosis of unspecified deep veins of unspecified lower extremity Status: Acute Plan: - Pt found to have a DVT in the left common femoral vein and posterior tibial vein - Discussed with the pts family options for treatment including anticoagulation after GI evaluations, filter placement and no treatment discussed with patient and daughter Maggie - Patient and daughter understand the risks and would like NO treatment at this point (5) Hypothyroid ICD Codes: E03.9 - Hypothyroid Status: Acute Plan: - Home meds continued (6) Hyperlipemia ICD Codes: E78.5 - Hyperlipemia Status: Acute Plan: - Continue Atorvastatin (7) GERD (gastroesophageal reflux disease) ICD Codes: K21.9 - GERD (gastroesophageal reflux disease) Status: Acute Plan: - PPI Assessment and Plan Patient examined. Assessment and plan formulated with Jyoti Truong PA-C. I agree with the above. Jyoti Truong Oct 30, 2016 08:54 Luis Antonio Cam MD Oct 30, 2016 13:11
[2016-10-30] MEDS: SODIUM CHLORIDE 0.9% FLUSH 10 ML FLUSH IV FLUSH SCH ×2 (09:05→19:57)
[2016-10-30] MEDS: LORATADINE 10 MG TAB PO SCH (09:05)
[2016-10-30] MEDS: PANTOPRAZOLE SOD 40 MG DELAYED RELEASE TAB PO SCH (09:06)
[2016-10-30] MEDS: ACETAMINOPHEN 325 MG TAB PO PRN (09:06)
[2016-10-30] MEDS: ESCITALOPRAM OXALATE 20 MG TAB PO SCH (09:06)
[2016-10-30] MEDS: LEVOTHYROXINE SODIUM 75 MCG TAB PO SCH (09:06)
[2016-10-30 12:00] VITALS: BP 113/67; PULSE 84; RESP 18; TEMP 96.8; O2SAT 98
[2016-10-30] MEDS: ACETAMINOPHEN/HYDROcodone 325 MG/5 MG TAB PO PRN ×2 (13:33→18:10)
[2016-10-30] MEDS: RESP: ALBUTEROL 2.5 MG/IPRATROPIUM 0.5 MG NEB (PRN) NEB (13:46)
--- NOTE | 2016-10-30 13:56 | PD.CONS ---
Consult Service Palliative Care Consult Requested By Dr. Cam. Primary Care Physician Carl Cota M.D. Reason for Consultation a. To assist with evaluation and management of symptoms including: Pain, Debility b. To assist medical decision maker(s) with: better understanding of current medical conditions; weighing benefits/burdens of medical treatment options; making medical treatment decisions. HPI History of Present Illness Mrs. Murrieta is an 89-year-old female with a medical history of COPD, GERD, depression,spinal stenosis, generative joint disease, osteoporosis and hypothyroidism who presented to the ED on 10/25/16 via EMS endorsing right arm and hip pain secondary to mechanical fall. Patient reported that she has chronic dizziness. Humerus X Ray to right extremity revealed supracondylar humeral fracture in reasonable alignment. Hip pelvis X ray revealed acute fracture of the superior and inferior pubic rami. Lumbar spine x-ray negative for acute process. Maxillofacial CT negative for acute process. Head CT revealing mild cerebral atrophy and moderate white matter small vessel ischemic changes bilaterally, negative for acute process. Cervical spine CT negative for acute process, stable chronic spinal stenosis at C5-6 and C6-7 with moderate bilateral foraminal narrowing at these levels. Chest x-ray revealing COPD changes but negative for acute process. Patient was admitted for further management. Orthopedic Dr. Valadez consulted for management of fractures, recommended application of long arm cast to right arm with non-surgical intervention except as activity modification and management. Course of treatment complicated with hypotensive episode with a reported BP of 66/41. Patient was transferred to ICU. Critical Care Dr. Ghosh consulted 10/26/16 and hypotension was medically managed with 2L NS bolus and albumin. Laboratory workup 10/26/16 revealed WBC 13.3, hemoglobin 5.7, hematocrit 17.2, Platelet count 111, BUN/Creatinine 27/ 1.33. Patient was transfused 2 units pRBCs. Hemoglobin improved to 8.6 on . Patient endorsing leg pain, ultrasound to left leg 10/28/16 positive for DVT involving the common femoral vein in the posterior tibial vein. On 10/28/16 nurse reported maroon colored stool from rectum. Stat hemoglobin showed 7.0, 2 more units pRBCs were transfused. As per medical records, patient and family declined to pursue GI bleed workup -colonoscopy, IVC filter or anticoagulation for DVT. Palliative care consulted for further clarifications of goals of care. Patient met in her room, she was sitting up in bed in no acute distress, falling asleep eating breakfast. Patient alert and oriented x self, place and situation. Verbal and able to communicate needs. Pleasant, Receptive to palliative care visit. Patient endorsing shortness of breath on exertion, intermittent pain to right arm and back. Exacerbated by movement or physical exertion, alleviated by rest. Patient reporting poor appetite with decreased oral intake. Patient is afebrile, HR high 70s-90s, SBP low 100s- 120s, O2 Saturation 90s with O2L NC. Goals of care conversation with patient, daughter Haylee at bedside. Patient with a good understanding of her clinical condition and medical issues. Resident of [facility] for the past 10 years, she verbalized understanding of her higher level of needs given her recent factors and progressive decline. Wishing to discharge to long-term facility. Patient confirmed not wishing to pursue any aggressive treatment. Hospice philosophy and benefits reintroduce, patient and family receptive to this. Patient and families goal is to discharge to shelter facility with hospice care. Patient and family not likely to pursue blood transfusions once patient had termite exterminator helper facility. Telephone conversation with patient's daughter Maggie carroll healthcare surrogate decision maker, Maggie verbalized that family is fully supportive of patient's wishes for comfort-directed care with hospice. All questions were answered in great detail. Case discussed with hospice admissions recruiter Gloria. . Function/Cognitive Trajectory Prior to these hospitalization, patient residing at [facility] for the past 10 years. History of hip fracture 3 years ago, requiring wheelchair since. Independent for transfers and ADLs. Patient currently is oriented to self place and situation, and is able to verbalize her needs. No cognitive deficit reported or noted. . Review of Systems Constitutional: COMPLAINS OF: Weight loss, Change in appetite, Pain, Generalized weakness Eyes: COMPLAINS OF: Eye inflammation (Bruise and echymosi to right eyelid), Eye pain Ears, nose, mouth, throat: DENIES: Hearing loss, Nasal discharge, Oral lesions Respiratory: COMPLAINS OF: Shortness of breath, DENIES: Cough, Wheezing Cardiovascular: COMPLAINS OF: Dyspnea on Exertion, DENIES: Lower Extremity Edema Gastrointestinal: COMPLAINS OF: Bloody stools, Difficulty Swallowing, DENIES: Nausea, Vomiting Genitourinary: DENIES: Urinary incontinence Musculoskeletal: COMPLAINS OF: Joint pain, Back pain, Decreased range of motion Integumentary: DENIES: Rash Hematologic/Lymphatics: COMPLAINS OF: Bruising, History of transfusions Immunologic/Allergic: DENIES: Eczema Neurologic: COMPLAINS OF: Poor Balance, DENIES: Seizures, Speech Problems, Tremor Psychiatric: DENIES: Anxiety, Confusion, Agitation Past Family Social History Coded Allergies: latex (Unverified Allergy, Severe, Rash, 09/24/16) phenazopyridine (Unverified Allergy, Severe, Nausea/Vomiting, 09/24/16) povidone-iodine (Unverified Allergy, Severe, 09/24/16) *MDRO Multi-Drug Resistant Organism (Unverified Adverse Reaction, Unknown , 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 Uncoded Allergies: VAGICIL (Allergy, Unknown, 12/13/02) Past Medical History COPD GERD Spinal stenosis involving lumbar Generative joint disease Hypothyroidism Osteoporosis Anxiety Depression Over active bladder Recurrent UTI Hyperlipidemia Allergic rhinitis . Past Surgical History Total hysterectomy. Tonsillectomy. Right hip fracture requiring surgery. Fracture of the right radius and open reduction, internal fixation. Lumbar surgery . Reported Medications Claritin (Loratadine) 10 Mg Cap 10 Mg PO DAILY Levothyroxine (Levothyroxine Sodium) 75 Mcg Tab 75 Mcg PO DAILY Fluticasone Nasal [place] 50 Mcg/Act Naspr 50 Mcg EACH NARE DAILY Atorvastatin (Atorvastatin Calcium) 20 Mg Tab 20 Mg PO HS Escitalopram (Escitalopram Oxalate) 20 Mg Tab 20 Mg PO DAILY Pantoprazole (Pantoprazole Sodium) 40 Mg Tab 40 Mg PO DAILY Meclizine (Meclizine HCl) 12.5 Mg Tab 12.5 Mg PO TID PRN Duoneb (Ipratropium-Albuterol Neb) 0.5-2.5 Mg/3 Ml Neb 1 Nebule INH Q6HR NEB Ibuprofen 800 Mg Tab 800 Mg PO Q8H PRN . Current Medications Medications (Trade) Dose Ordered Sig/Evelia Route Start Time Stop Time Status Last Admin (NS Flush) 2 ml UNSCH PRN IV FLUSH 10/25/16 15:15 (NS Flush) 2 ml BID IV FLUSH 10/25/16 21:00 10/30/16 09:05 (Tylenol) 650 mg Q4H PRN PO 10/25/16 15:15 10/30/16 09:06 (Zofran Inj) 4 mg Q6H PRN IVP 10/25/16 15:15 (Lovenox Inj) 30 mg Q24H SQ 10/25/16 16:00 Future Hold 10/27/16 17:20 (Narcan Inj) 0.4 mg UNSCH PRN IV PUSH 10/25/16 15:15 (Milk Of Magnesia Liq) 30 ml Q12H PRN PO 10/25/16 15:15 (Duoneb Neb) 1 ampule Q6HR NEB PRN NEB 10/25/16 15:15 10/26/16 10:26 (Lipitor) 20 mg HS PO 10/25/16 21:00 10/29/16 19:36 (Lexapro) 20 mg DAILY PO 10/26/16 09:00 10/30/16 09:06 (Synthroid) 75 mcg DAILY PO 10/26/16 09:00 10/30/16 09:06 (Claritin) 10 mg DAILY PO 10/26/16 09:00 10/30/16 09:05 (Antivert) 12.5 mg TID PRN PO 10/25/16 15:15 10/26/16 21:46 (Protonix) 40 mg DAILY PO 10/26/16 09:00 10/30/16 09:06 ([place] 5-325 Mg) 1 tab Q6H PRN PO 10/25/16 15:15 (Dilaudid Pf Inj) 0.5 mg Q6H PRN IV PUSH 10/25/16 15:15 (Brethine Inj) 1 mg UNSCH PRN SQ 10/25/16 17:45 Family History Patient has two adult daughters who are alive and well. . Substance Use Tobacco: Former smoker for approximately 14 years -less than a pack a day. Quit when she was 37 y/o. Alcohol: Drinks alcohol socially. Prescription med abuse: Denies Illicits: Denies . Psychosocial History Patient was born in [place], [place]. She moved to [place] at age 23. 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 They got and moved to [place] in 1978. Patient has 2 adult daughters who live locally. Her 10 years ago and since then she has resided at [facility]. . Spiritual/Cultural Factors Uatsdin rhianna. . Health Care Surrogate: Copy in medical record Durable Power of Clinical Aide: Copy in medical record Date completed: 12/04/2006. Health Care Surrogate(s): Patient designated her daughter Maggie Murrieta as healthcare surrogate decision maker. . Today's verbally stated goals: Patient is a DNR. Patient electing comfort-directed care with hospice. . Family/friends goals: Patient`s daughters supportive of patient`s wishes of electing hospice and not pursuing any further aggressive treatment. . Ethical and Legal Issues No ethical legal issues identified. Patient is participating in medical decision making. . Physical Exam Vital Signs Date Time Temp Pulse Resp B/P (MAP) Pulse Ox O2 Delivery O2 Flow Rate FiO2 10/30/16 08:00 96.5 91 18 129/62 (84) 94 10/30/16 04:49 96.8 87 17 126/57 (80) 94 10/29/16 23:51 96.7 79 17 103/52 (69) 95 10/29/16 19:25 98.4 89 17 99/63 (75) 97 10/29/16 16:00 97.6 89 18 121/66 (84) 97 10/29/16 12:14 21 10/29/16 12:00 96.4 91 18 95/60 (72) 97 Exam CONSTITUTIONAL/GENERAL: This is an pleasant, elderly frail, cachectic patient, in no acute distress. TUBES/LINES/DRAINS:PIVs, NC. SKIN: No jaundice, rashes, or lesions. Pale. Bruising and ecchymoses to right side face, extending to the neck, left upper extremity and right thumb. No wounds seen anteriorly. Skin temperature cool to touch. HEAD: Atraumatic. Normocephalic. EYES: Pupils equal and round and reactive. Extraocular motions intact. No scleral icterus. Fundi not examined. ENT: Hearing grossly normal. Nose without bleeding or purulent drainage. Moist oral mucosa. Missing teeth NECK: Trachea midline. Supple, nontender. No palpable thyroid enlargement or nodularity. CARDIOVASCULAR: Regular rate and rhythm without murmurs, gallops, or rubs. No JVD. Peripheral pulses symmetric. Unable to assess Right radial pulse secondary to cast. RESPIRATORY/CHEST: Symmetric, unlabored respirations. Rhonchi and diminished. No wheezes. GASTROINTESTINAL: Abdomen soft, mildly tender to palpation, nondistended. Hypoactive sounds present. GENITOURINARY: Without palpable bladder distension. MUSCULOSKELETAL: Extremities without clubbing, cyanosis. No joint tenderness or effusion noted. Edema to left leg. No mottling or clubbing. NEUROLOGICAL: Awake and alert. Motor and sensory grossly within normal limits. Follows simple commands with decreased strength to RUE. Cognitively sharp. Moves all extremities. PSYCHIATRIC: No obvious anxiety/depression. no apparent hallucinations or other psychotic thought process. Patient pleasant and cooperative. . Diagnostic Tests Laboratory Laboratory Tests Test 10/28/16 06:33 10/28/16 12:00 10/29/16 05:50 White Blood Count 16.3 TH/MM3 (4.0-11.0) 15.1 TH/MM3 (4.0-11.0) Red Blood Count 2.36 MIL/MM3 (4.00-5.30) 3.26 MIL/MM3 (4.00-5.30) Hemoglobin 7.5 GM/DL (11.6-15.3) 7.0 GM/DL (11.6-15.3) 10.3 GM/DL (11.6-15.3) Hematocrit 22.2 % (35.0-46.0) 21.2 % (35.0-46.0) 30.2 % (35.0-46.0) Mean Corpuscular Volume 94.2 FL (80.0-100.0) 92.6 FL (80.0-100.0) Mean Corpuscular Hemoglobin 31.8 PG (27.0-34.0) 31.6 PG (27.0-34.0) Mean Corpuscular Hemoglobin Concent 33.8 % (32.0-36.0) 34.1 % (32.0-36.0) Red Cell Distribution Width 15.1 % (11.6-17.2) 15.4 % (11.6-17.2) Platelet Count 75 TH/MM3 (150-450) 69 TH/MM3 (150-450) Mean Platelet Volume 9.8 FL (7.0-11.0) 9.3 FL (7.0-11.0) Neutrophils (%) (Auto) 79.1 % (16.0-70.0) 68.8 % (16.0-70.0) Lymphocytes (%) (Auto) 11.1 % (9.0-44.0) 16.7 % (9.0-44.0) Monocytes (%) (Auto) 9.6 % (0.0-8.0) 13.8 % (0.0-8.0) Eosinophils (%) (Auto) 0.1 % (0.0-4.0) 0.5 % (0.0-4.0) Basophils (%) (Auto) 0.1 % (0.0-2.0) 0.2 % (0.0-2.0) Neutrophils # (Auto) 12.9 TH/MM3 (1.8-7.7) 10.4 TH/MM3 (1.8-7.7) Lymphocytes # (Auto) 1.8 TH/MM3 (1.0-4.8) 2.5 TH/MM3 (1.0-4.8) Monocytes # (Auto) 1.6 TH/MM3 (0-0.9) 2.1 TH/MM3 (0-0.9) Eosinophils # (Auto) 0.0 TH/MM3 (0-0.4) 0.1 TH/MM3 (0-0.4) Basophils # (Auto) 0.0 TH/MM3 (0-0.2) 0.0 TH/MM3 (0-0.2) CBC Comment AUTO DIFF AUTO DIFF Differential Comment AUTO DIFF CONFIRMED AUTO DIFF CONFIRMED Platelet Estimate LOW (NORMAL) LOW (NORMAL) Platelet Morphology Comment NORMAL (NORMAL) NORMAL (NORMAL) Result Diagram: 10/29/16 0550 10/27/16 0810 Imaging Last Impressions Lower Extremity Ultrasound 10/27/16 0000 Signed Impressions: Service Date/Time: Thursday, October 27, 2016 18:02 - CONCLUSION: Study is positive for DVT of the left lower extremity involving the common femoral vein and the posterior tibial vein. Juarez Caro MD Elbow X-Ray 10/27/16 0000 Signed Impressions: Service Date/Time: Thursday, October 27, 2016 14:17 - CONCLUSION: 1. Interval casting of distal right humeral supracondylar fracture in near-anatomic alignment. Rodriguez Golden MD Chest X-Ray 10/25/16 1512 Signed Impressions: Service Date/Time: Tuesday, October 25, 2016 15:48 - CONCLUSION: 1. COPD changes. Negative for acute abnormality. Lucien Narayan MD Maxillofacial CT 10/25/16 1257 Signed Impressions: Service Date/Time: Tuesday, October 25, 2016 14:08 - CONCLUSION: Negative for fracture. Tubbs chronic sinus disease. Arik Narayan MD FACR Humerus X-Ray 10/25/16 1257 Signed Impressions: Service Date/Time: Tuesday, October 25, 2016 13:25 - CONCLUSION: Supracondylar humeral fracture in reasonable alignment. Arik Narayan MD FACR Hip and Pelvis X-Ray 10/25/16 1257 Signed Impressions: Service Date/Time: Tuesday, October 25, 2016 13:25 - CONCLUSION: Acute fracture inferior and superior pubic ramus on the right Previous hip nailing. Arik Narayan MD FACR Head CT 10/25/16 1257 Signed Impressions: Service Date/Time: Tuesday, October 25, 2016 14:08 - CONCLUSION: 1. Mild cerebral atrophy and moderate periventricular white matter small vessel ischemic changes bilaterally. 2. No acute infarct, acute hemorrhage, mass effect or extra-axial fluid collections. 3. Mucosal thickening involving the bilateral maxillary and sphenoid sinuses and left ethmoid air cells. Ed Maria MD Cervical Spine CT 10/25/16 1257 Signed Impressions: Service Date/Time: Tuesday, October 25, 2016 14:08 - CONCLUSION: 1. No acute fracture or prevertebral soft tissue swelling. 2. Stable chronic spinal stenosis at C5-6 and C6-7 with moderate bilateral foraminal narrowing at these levels. 3. Moderate left neural foraminal narrowing at C3-4 and C4-5. 4. Diffuse cervical spondylosis which is most severe at C5-6 and C6-7. 5. Straightening of the normal cervical lordosis. 6. Biapical scarring and pleural thickening which is unchanged compared to the previous examination. Ed Maria MD Lumbar Spine X-Ray 10/25/16 0000 Signed Impressions: Service Date/Time: Tuesday, October 25, 2016 20:53 - CONCLUSION: 1. No subluxation or definite acute fracture. 2. Chronic appearing loss of height towards the left of the L3 vertebral body and the pedicle screws appear to extend into the L2/L3 disc space. 3. Mild levoconvex curvature centered around L2/L3. Juarez Caro MD Procedures 10/25/16 Long arm fiberglass cast application to right arm . Patient/Family Conference Present at Family Conference: Met with patient and daughter Haylee at bedside. Telephone call placed to Serrano ( POA). . Family Conference Time (mins): 46 Family Conference Location: Bedside, Telephone Issues Discussed: * Palliative care role, purpose, approach * Additional medical, psychosocial, and spiritual history * Patients general health, functional status, and cognitive changes in the months leading up to the current hospitalization * Patient/family understanding of the current medical problems -fractures secondary to mechanical fall, active GI bleed, DVT, COPD, progressive debility/ physical deconditioning * Patient/family understanding of prognosis -overall poor prognosis * Patients goals of care as best understood from advance directives and/or conversations and/or values * Current medical treatment options and benefits/burdens of those options * Likely scenarios comparing ongoing aggressive care with a transition to comfort measures only * Questions answered to the best of my ability * Palliative care contact information provided * Hospice philosophy and benefits . Assessment and Plan Disease Oriented Problem List: (1) GI bleed (2) Anemia (3) Right supracondylar humerus fracture (4) COPD (chronic obstructive pulmonary disease) (5) DVT (deep venous thrombosis) Symptom Scale: (1) Pain 0-10 Scale: Unable to quantify (s/p fall with right humerus fx, and acute pubic rami. Endorsing pain to sacral area.) (2) Physical deconditioning 0-10 Scale: Unable to quantify Pertinent Non-Medical Issues Psychosocial:Patient was born in [place], [place]. She moved to [place] at age 23. 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 They got and moved to [place] in 1978. Patient has 2 adult daughters who live locally. Her 10 years ago and since then she has resided at [facility]. Spiritual: Uatsdin rhianna Legal: Patient has power of fixed interest dealer on file Ethical issues impacting care: No ethical issues identified. Patient participating in medical decision-making. . Important Contacts Daughter- [facility] Maggie Murrieta or Daughter -Haylee or . Prognosis Mrs. Murrieta is an 89-year-old female with a medical history of COPD, GERD, depression,spinal stenosis, generative joint disease, osteoporosis and hypothyroidism presented to the ED on 10/25/16 via EMS after a mechanical fall where she resides. Patient reported that she has chronic dizziness and has a history of falls. Patient has sustained a humerus fracture to the right extremity which is her dominant hand and an acute fracture of the superior and inferior pubic rami. Clinical course complicated by GI bleed requiring frequent transfusions, hypotension and DVT. Patient's overall prognosis is poor given acute GI bleed, DVT, multiple chronic ongoing comorbidities, progressive decline/physical deconditioning and advanced age. Patient appears hospice appropriate should patient/family elects comfort-directed care. . Code Status: No Code Plan * CODE STATUS: DNR/DNI. This has been confirmed with patient and daughters. * HEALTH CARE SURROGATE: Patient participating in medical decision making. Patient has good insight into her current medical condition, able to weigh benefits vs burdens of current treatment options. Patient has designated her daughter Maggie Murrieta as healthcare surrogate decision maker. * GOALS OF CARE: Patient declining aggressive treatment, electing to transition to comfort-directed care with hospice care upon discharge. Goal of therapy is to discharge to long-term facility with hospice services. Patient's daughters fully supportive of patient's wishes. * SYMPTOMS: ==Pain- History of falls, spinal stenosis and current acute fractures of right humerus and interior and posterior rami. [place] 3/325 every 6 hours PRN and hydromorphone 0.5 mg Q6hr PRN available. Pain controlled with current management. ==Physical deconditioning- Patient endorsing weight loss, decreased appetite and weakness. Patient declining PT at rehabilitation. Wishing for discharge to long-term facility. Likely to continue to worsen. * Palliative care contact information has been provided to patient and family. * Palliative care will continue to follow-up for further clarifications of goals of care as patient's clinical course continues to evolve. . Time Spent Total Floor Time (mins): 78 (Total time to include review and summarization of available medical records to include prior hospitalizations and ED visits, physical exam, goals of care conversation with patient and daughter, telephone conversation with patient's daughter Maggie, case discussion with hospice admissions recruiter.) >50% Counseling/Coord of Care: Yes Thank you for the opportunity to participate in the care of Ms. Murrieta. Attestation To help prompt me to consider important information that might be impacting today's encounter and assessment, information from prior notes written by myself or my colleagues may have been "brought forward" into today's note. My signature on this note, however, is an attestation that I personally performed the exam, history, and/or decision-making noted today, and, unless otherwise indicated, the interactions with patient, family, and staff as well as the review of records all occurred today. I also attest that the listed assessment and stated plan reflect my best clinical judgment today based on the combination of historical information, prior notes, and today's exam/ interactions. When time spent is documented, it refers only to time spent today by the signer, or if indicated, combined time spent today by collaborating physician/nurse practitioner. Alejandrina Sierra Oct 30, 2016 12:36
[2016-10-30 19:00] VITALS: BP 109/57; PULSE 87; RESP 17; TEMP 97.6; O2SAT 97
[2016-10-30] MEDS: ATORVASTATIN 20 MG TAB PO SCH (19:57)
[2016-10-30 22:00] VITALS: BP 108/55; PULSE 79; RESP 19; TEMP 97.5; O2SAT 99
[2016-10-31] VITALS: BP 108/55; PULSE 79; RESP 19; TEMP 97.5; O2SAT 99
[2016-10-31 04:00] VITALS: BP 105/65; PULSE 90; RESP 17; TEMP 97; O2SAT 98
[2016-10-31 08:00] VITALS: BP 133/72; PULSE 88; RESP 18; TEMP 96.7; O2SAT 96
[2016-10-31] MEDS: LORATADINE 10 MG TAB PO SCH (08:07)
[2016-10-31] MEDS: LEVOTHYROXINE SODIUM 75 MCG TAB PO SCH (08:07)
[2016-10-31] MEDS: ESCITALOPRAM OXALATE 20 MG TAB PO SCH (08:08)
[2016-10-31] MEDS: PANTOPRAZOLE SOD 40 MG DELAYED RELEASE TAB PO SCH (08:08)
[2016-10-31] MEDS: SODIUM CHLORIDE 0.9% FLUSH 10 ML FLUSH IV FLUSH SCH (09:00)
--- NOTE | 2016-10-31 09:08 | HHI.PR ---
Subjective Remarks eating breakfast. Objective Vitals nad facial ecchymosis heart reg lung course bs abd s/nt ext no edema Vital Signs Date Time Temp Pulse Resp B/P (MAP) Pulse Ox O2 Delivery O2 Flow Rate FiO2 10/31/16 04:00 97.0 90 17 105/65 (78) 98 10/31/16 00:00 97.5 79 19 108/55 (72) 99 10/30/16 19:56 94 Nasal Cannula 2.00 Humidified 10/30/16 19:00 97.6 87 17 109/57 (74) 97 10/30/16 12:00 96.8 84 18 113/67 (82) 98 Result Diagram: 10/29/16 0550 10/27/16 0810 Imaging Last Impressions Lower Extremity Ultrasound 10/27/16 0000 Signed Impressions: Service Date/Time: Thursday, October 27, 2016 18:02 - CONCLUSION: Study is positive for DVT of the left lower extremity involving the common femoral vein and the posterior tibial vein. Juarez Caro MD Elbow X-Ray 10/27/16 0000 Signed Impressions: Service Date/Time: Thursday, October 27, 2016 14:17 - CONCLUSION: 1. Interval casting of distal right humeral supracondylar fracture in near-anatomic alignment. Rodriguez Golden MD Chest X-Ray 10/25/16 1512 Signed Impressions: Service Date/Time: Tuesday, October 25, 2016 15:48 - CONCLUSION: 1. COPD changes. Negative for acute abnormality. Lucien Narayan MD Maxillofacial CT 10/25/16 1257 Signed Impressions: Service Date/Time: Tuesday, October 25, 2016 14:08 - CONCLUSION: Negative for fracture. Tubbs chronic sinus disease. Arik Narayan MD FACR Humerus X-Ray 10/25/16 1257 Signed Impressions: Service Date/Time: Tuesday, October 25, 2016 13:25 - CONCLUSION: Supracondylar humeral fracture in reasonable alignment. Arik Narayan MD FACR Hip and Pelvis X-Ray 10/25/16 1257 Signed Impressions: Service Date/Time: Tuesday, October 25, 2016 13:25 - CONCLUSION: Acute fracture inferior and superior pubic ramus on the right Previous hip nailing. Arik Narayan MD FACR Head CT 10/25/16 1257 Signed Impressions: Service Date/Time: Tuesday, October 25, 2016 14:08 - CONCLUSION: 1. Mild cerebral atrophy and moderate periventricular white matter small vessel ischemic changes bilaterally. 2. No acute infarct, acute hemorrhage, mass effect or extra-axial fluid collections. 3. Mucosal thickening involving the bilateral maxillary and sphenoid sinuses and left ethmoid air cells. Ed Maria MD Cervical Spine CT 10/25/16 1257 Signed Impressions: Service Date/Time: Tuesday, October 25, 2016 14:08 - CONCLUSION: 1. No acute fracture or prevertebral soft tissue swelling. 2. Stable chronic spinal stenosis at C5-6 and C6-7 with moderate bilateral foraminal narrowing at these levels. 3. Moderate left neural foraminal narrowing at C3-4 and C4-5. 4. Diffuse cervical spondylosis which is most severe at C5-6 and C6-7. 5. Straightening of the normal cervical lordosis. 6. Biapical scarring and pleural thickening which is unchanged compared to the previous examination. Ed Maria MD Lumbar Spine X-Ray 10/25/16 0000 Signed Impressions: Service Date/Time: Tuesday, October 25, 2016 20:53 - CONCLUSION: 1. No subluxation or definite acute fracture. 2. Chronic appearing loss of height towards the left of the L3 vertebral body and the pedicle screws appear to extend into the L2/L3 disc space. 3. Mild levoconvex curvature centered around L2/L3. Juarez Caro MD Last Impressions Maxillofacial CT 10/25/16 1257 Signed Impressions: Service Date/Time: Tuesday, October 25, 2016 14:08 - CONCLUSION: Negative for fracture. Tubbs chronic sinus disease. Arik Narayan MD FACR Humerus X-Ray 10/25/16 1257 Signed Impressions: Service Date/Time: Tuesday, October 25, 2016 13:25 - CONCLUSION: Supracondylar humeral fracture in reasonable alignment. Arik Narayan MD FACR Hip and Pelvis X-Ray 10/25/16 1257 Signed Impressions: Service Date/Time: Tuesday, October 25, 2016 13:25 - CONCLUSION: Acute fracture inferior and superior pubic ramus on the right Previous hip nailing. Arik Narayan MD FACR Head CT 10/25/16 1257 Signed Impressions: Service Date/Time: Tuesday, October 25, 2016 14:08 - CONCLUSION: 1. Mild cerebral atrophy and moderate periventricular white matter small vessel ischemic changes bilaterally. 2. No acute infarct, acute hemorrhage, mass effect or extra-axial fluid collections. 3. Mucosal thickening involving the bilateral maxillary and sphenoid sinuses and left ethmoid air cells. Ed Maria MD A/P Problem List: (1) Fall ICD Codes: W19.XXXA - Unspecified fall, initial encounter Plan: - Pt is an 89 y/o female who was brought in after a mechanical fall and found to have an inferior and superior pubic rami fracture on right and a right humeral fracture - Hip/Pelvis X-ray revealed fracture of the inferior and superior pubic ramus on right - Humerus X ray right supra condylar humeral fracture in reasonable alignment- long arm Fiberglas cast in place - Head CT reviewed and revealed no acute infarct, acute hemorrhage, mass effect or extra-axial fluid collection - Orthopedic surgery recommend DC with X-rays of pelvis and right elbow with follow up in office in 10 days - Patient also reported back pain- Lumbar spine x ray (10/25) --> No subluxation or definite acute fracture. Chronic appearing loss of height towards the left of the L3 vertebral body and the pedicle screws appear to extend into the L2/L3 disc space. Mild levoconvex curvature centered around L2/L3. - PT recommending rehab - Pt is a DNR Pt will go to [facility] with hospice. Patient not interested in bleeding evaluation or rx dvt. comfort measures. (2) Hypotension ICD Codes: I95.9 - Hypotension, unspecified Plan: - Upon arrival to her room patients BP was 66/41 and she was transferred to ICU - Her Hgb 5.7 (10/26) and she was transfused two units PRBCs - Hgb improved 8.6 (10/27) - BP improved - discussed with patient and daughters at bedside they do not want aggressive evaluation/workup. (3) Anemia ICD Codes: D64.9 - Anemia, unspecified Status: Chronic Plan: - Suspected GI bleed - On 10/28 received call from RN on the floor that patient had maroon colored blood from rectum during turning. - Lovenox placed on hold - Labs repeated at noon on 10/28 with a noted decrease in Hgb from 7.5 to 7.0 - Pt transfused another 2 units PRBC on 10/28 - Repeat Hgb 10.3 (10/29) - Lengthy discussion with patient and daughter Maggie with Dr. Cam explaining current condition and options. Patient A&Ox3 and expresses that she does not want any further procedures including specifically colonoscopy, DVT filter placement or blood thinner to treat DVT. Patient expresses the desire to meet with hospice and her main goal is to be comfortable. Pt and family met with Hospice on 10/29. It was felt that the pt may be a candidate for admission to [facility] if goals are appropriate. - Patient is a DNR (4) DVT (deep venous thrombosis) ICD Codes: I82.409 - Acute embolism and thrombosis of unspecified deep veins of unspecified lower extremity Status: Acute Plan: - Pt found to have a DVT in the left common femoral vein and posterior tibial vein - Discussed with the pts family options for treatment including anticoagulation after GI evaluations, filter placement and no treatment discussed with patient and daughter Maggie - Patient and daughter understand the risks and would like NO treatment at this point (5) Hypothyroid ICD Codes: E03.9 - Hypothyroid Status: Acute Plan: - Home meds continued (6) Hyperlipemia ICD Codes: E78.5 - Hyperlipemia Status: Acute Plan: - Continue Atorvastatin (7) GERD (gastroesophageal reflux disease) ICD Codes: K21.9 - GERD (gastroesophageal reflux disease) Status: Acute Plan: - PPI Luis Antonio Cam MD Oct 31, 2016 09:08
--- NOTE | 2016-10-31 09:12 | HHI.DCPOC ---
Discharge Care Plan Diagnosis: (1) Fall (2) GI bleed (3) Anemia due to blood loss, chronic (4) Humerus fracture (5) Pelvic fracture (6) DVT (deep venous thrombosis) (7) Hypotension Goals to Promote Your Health * To prevent worsening of your condition and complications * To maintain your health at the optimal level Directions to Meet Your Goals Take your medications as prescribed Follow your dietary instruction Follow activity as directed Keep your appointments as scheduled Take your immunizations and boosters as scheduled If your symptoms worsen call your PCP, if no PCP go to Urgent Care Center or Emergency Room Smoking is Dangerous to Your Health. Avoid second hand smoke Call the 24-hour hour crisis hotline for domestic abuse at Luis Antonio Cam MD Oct 31, 2016 09:12
[2016-10-31] MEDS: ACETAMINOPHEN/HYDROcodone 325 MG/5 MG TAB PO PRN (11:51)
--- NOTE | 2016-10-31 12:55 | PD.ORT.PN ---
Subjective Subjective Remarks OK, Per daughter, now hospice patient, going to [facility] today No complaints reg arm but painful to get OOB Objective Vitals Vital Signs Date Time Temp Pulse Resp B/P (MAP) Pulse Ox O2 Delivery O2 Flow Rate FiO2 10/31/16 08:00 96.7 88 18 133/72 (92) 96 10/31/16 04:00 97.0 90 17 105/65 (78) 98 10/31/16 00:00 97.5 79 19 108/55 (72) 99 10/30/16 19:56 94 Nasal Cannula 2.00 Humidified 10/30/16 19:00 97.6 87 17 109/57 (74) 97 I/O 10/30/16 10/30/16 10/30/16 10/31/16 10/31/16 10/31/16 07:00 15:00 23:00 07:00 15:00 23:00 Intake Total 240 ml 680 ml 480 ml Balance 240 ml 680 ml 480 ml Intake Oral 240 ml 680 ml 480 ml # Voids 2 2 2 # Bowel Movements 1 0 0 Result Diagram: 10/29/16 0550 10/27/16 0810 Objective Remarks LAC right arm. Moves fingers well, a bit stiff due to non use. No NV deficit RUE Assessment & Plan Assessment and Plan To see me next for FU on right elbow and pelvic fractures. They will call for apptt. Jacky Valadez MD Oct 31, 2016 12:55
[2016-10-31 13:00] VITALS: RESP 16
[2016-11-13] MEDS ORDERED: HYDR-3516 PO (07:16)
[2016-11-13] MEDS ORDERED: DULC10SU3 RECTAL (07:16)
[2016-11-13] MEDS ORDERED: TYLE325T PO (07:16)
[2016-11-13] MEDS ORDERED: OMEP20TA PO (07:16)
[2016-11-13] MEDS ORDERED: SENN8.6T36 PO (07:16)
== END 2016-10-31 15:09 | disposition hospice, inpatient (51) | DRG 536 ==
LOC: NEPE 12:33 → NEDA 15:16 → N06B 16:40 → N03A 23:54 → OBSVTOIN 10-26 10:12 → N06A 10-26 12:10
PROVIDERS: ADMIT Hospitalist; ATTEND Hospitalist
PROC: 30233N1 Transfusion of Nonautologous Red Blood Cells into Peripheral Vein, Percutaneous Approach (ICD-10-PCS; principal; 2016-10-26)
DX: S32.591A Other specified fracture of right pubis, initial encounter for closed fracture (principal); R64 Cachexia; I95.89 Other hypotension; I82.412 Acute embolism and thrombosis of left femoral vein; J44.9 Chronic obstructive pulmonary disease, unspecified; E11.42 Type 2 diabetes mellitus with diabetic polyneuropathy; Z68.1 Body mass index [BMI] 19.9 or less, adult; I82.442 Acute embolism and thrombosis of left tibial vein; K92.1 Melena; S42.414A Nondisplaced simple supracondylar fracture without intercondylar fracture of right humerus, initial encounter for closed fracture; F32.9 Major depressive disorder, single episode, unspecified; N32.81 Overactive bladder; F41.9 Anxiety disorder, unspecified; K21.9 Gastro-esophageal reflux disease without esophagitis; W05.0XXA Fall from non-moving wheelchair, initial encounter; Y92.009 Unspecified place in unspecified non-institutional (private) residence as the place of occurrence of the external cause; E78.5 Hyperlipidemia, unspecified; E03.9 Hypothyroidism, unspecified; M81.0 Age-related osteoporosis without current pathological fracture; M48.06 Spinal stenosis, lumbar region; Z66 Do not resuscitate; E86.1 Hypovolemia; Z51.5 Encounter for palliative care; Z87.891 Personal history of nicotine dependence; D50.0 Iron deficiency anemia secondary to blood loss (chronic)
CPT/HCPCS: 36430; 70450; 70486; 71010; 72100; 72125; 73060; 73070; 73502; 80048; 80053; 83605; 83735; 84100; 84443; 84484; 85014; 85018; 85025; 85027; 85384; 85610; 85730; 86850; 86900; 86901; 86920; 87641; 93005; 93971; 94640; 94664; 96372; G0378; G8987-GP; G8988-GP; G8996-GN; G8997-GN; G8998-GN; J1650; J1940; J7030; J7040; L3808; P9016; P9047